=== PATIENT | female | born 1990 | race Caucasian/White ===

== ENCOUNTER 2019-07-21 14:03 | Inpatient (IN) | payer OTHER ==
--- NOTE | 2019-07-21 14:34 | ED ---
General Adult HPI - General Chief complaint: Recheck/Abnormal Lab/Rx Stated complaint: Dr Blas sent patient over, jaundice Time Seen by Provider: 07/21/19 14:19 Source: patient, RN notes reviewed Mode of arrival: ambulatory Limitations: no limitations - History of Present Illness Initial comments: This a 29-year-old female presents emergency Department chief complaint of jaundice, URI symptoms. Patient states that she noticed jaundice but states t [facility] urgent care noticing Center for further evaluation. Patient does admit that she is a daily drinker for several years at least 1 pint per day. Patient states that she has had withdrawal symptoms in the past after having negative drinking. She has no complaint abdominal pain denies nausea, vomiting diarrhea constipation no change in urine or stool color. Patient states that she's never been diagnosed with liver disease. Patient admits that she's had cough congestion sinus issues for the last 3-4 days. Patient also complains that she's had been having ongoing hemorrhoid issues which intermittent bleeds. - Related Data Allergies Allergy/AdvReac Type Severity Reaction Status Date / Time No Known Allergies Allergy Verified 07/21/19 14:14 Review of Systems ROS Statement: Those systems with pertinent positive or pertinent negative responses have been documented in the HPI. ROS Other: All systems not noted in ROS Statement are negative. Past Medical History Past Medical History: No Reported History History of Any Multi-Drug Resistant Organisms: None Reported Past Surgical History: Tonsillectomy Additional Past Surgical History / Comment(s): jaw Past Psychological History: No Psychological Hx Reported Smoking Status: Current some day smoker Past Alcohol Use History: Abuse, Daily, Heavy Past Drug Use History: Marijuana General Exam Limitations: no limitations General appearance: alert, in no apparent distress Head exam: Present: atraumatic, normocephalic, normal inspection Eye exam: Present: PERRL, EOMI, scleral icterus. Absent: normal appearance, conjunctival injection, periorbital swelling ENT exam: Present: mucous membranes moist, TM's normal bilaterally. Absent: normal exam, normal oropharynx (Yellow coloration in the sublingual area) Neck exam: Present: normal inspection, full ROM. Absent: tenderness, meningismus, lymphadenopathy Respiratory exam: Present: normal lung sounds bilaterally. Absent: respiratory distress, wheezes, rales, rhonchi, stridor Cardiovascular Exam: Present: normal rhythm, tachycardia, normal heart sounds. Absent: systolic murmur, diastolic murmur, rubs, gallop, clicks GI/Abdominal exam: Present: soft, normal bowel sounds. Absent: distended, tenderness, guarding, rebound, rigid Neurological exam: Present: alert, oriented X3, CN II-XII intact Skin exam: Present: warm, dry, intact, normal color. Absent: rash Course Vital Signs 07/21/19 07/21/19 14:10 16:13 Temperature 99.1 F 99.2 F Pulse Rate 128 H 113 H Respiratory 20 20 Rate Blood Pressure 125/79 135/61 O2 Sat by Pulse 100 97 Oximetry Medical Decision Making - Lab Data Result diagrams: 07/21/19 17:00 07/21/19 14:26 Lab Results 07/21/19 07/21/19 07/21/19 Range/Units 14:26 14:26 14:26 WBC 9.3 (3.8-10.6) k/uL RBC 1.75 L (3.80-5.40) m/uL Hgb 4.5 L* (11.4-16.0) gm/dL Hct 14.7 L* (34.0-46.0) % MCV 83.8 (80.0-100.0) fL MCH 25.5 (25.0-35.0) pg MCHC 30.4 L (31.0-37.0) g/dL RDW 17.3 H (11.5-15.5) % Plt Count 235 (150-450) k/uL Neutrophils % 68 % Lymphocytes % 16 % Monocytes % 11 % Eosinophils % 1 % Basophils % 1 % Neutrophils # 6.3 (1.3-7.7) k/uL Lymphocytes # 1.5 (1.0-4.8) k/uL Monocytes # 1.0 (0-1.0) k/uL Eosinophils # 0.1 (0-0.7) k/uL Basophils # 0.1 (0-0.2) k/uL Hypochromasia Marked Poikilocytosis Moderate Anisocytosis Slight PT (9.0-12.0) sec INR (<1.2) APTT (22.0-30.0) sec Sodium 140 (137-145) mmol/L Potassium 3.5 (3.5-5.1) mmol/L Chloride 107 (98-107) mmol/L Carbon Dioxide 21 L (22-30) mmol/L Anion Gap 12 mmol/L BUN 3 L (7-17) mg/dL Creatinine 0.76 (0.52-1.04) mg/dL Est GFR (CKD-EPI)AfAm >90 (>60 ml/min/1.73 sqM) Est GFR (CKD-EPI)NonAf >90 (>60 ml/min/1.73 sqM) Glucose 132 H (74-99) mg/dL Calcium 8.5 (8.4-10.2) mg/dL Total Bilirubin 5.4 H (0.2-1.3) mg/dL AST 101 H (14-36) U/L ALT 16 (4-34) U/L Alkaline Phosphatase 129 H (38-126) U/L Total Protein 7.0 (6.3-8.2) g/dL Albumin 3.5 (3.5-5.0) g/dL Amylase 42 (30-110) U/L Lipase 205 (23-300) U/L Urine Color Urine Appearance (Clear) Urine pH (5.0-8.0) Ur Specific [place] (1.001-1.035) Urine Protein (Negative) Urine Glucose (UA) (Negative) Urine Ketones (Negative) Urine Blood (Negative) Urine Nitrite (Negative) Urine Bilirubin (Negative) Urine Urobilinogen (<2.0) mg/dL Ur Leukocyte Esterase (Negative) Urine RBC (0-5) /hpf Urine WBC (0-5) /hpf Urine WBC Clumps (None) /hpf Ur Squamous Epith Cells (0-4) /hpf Urine Bacteria (None) /hpf Hyaline Casts (0-2) /lpf Urine Mucus (None) /hpf Urine HCG, Qual Not Detected (Not Detectd) Acetaminophen <10.0 ug/mL Hepatitis A IgM Ab 07/21/19 07/21/19 07/21/19 Range/Units 14:26 14:26 15:22 WBC (3.8-10.6) k/uL RBC (3.80-5.40) m/uL Hgb (11.4-16.0) gm/dL Hct (34.0-46.0) % MCV (80.0-100.0) fL MCH (25.0-35.0) pg MCHC (31.0-37.0) g/dL RDW (11.5-15.5) % Plt Count (150-450) k/uL Neutrophils % % Lymphocytes % % Monocytes % % Eosinophils % % Basophils % % Neutrophils # (1.3-7.7) k/uL Lymphocytes # (1.0-4.8) k/uL Monocytes # (0-1.0) k/uL Eosinophils # (0-0.7) k/uL Basophils # (0-0.2) k/uL Hypochromasia Poikilocytosis Anisocytosis PT 15.2 H (9.0-12.0) sec INR 1.5 H (<1.2) APTT 25.6 (22.0-30.0) sec Sodium (137-145) mmol/L Potassium (3.5-5.1) mmol/L Chloride (98-107) mmol/L Carbon Dioxide (22-30) mmol/L Anion Gap mmol/L BUN (7-17) mg/dL Creatinine (0.52-1.04) mg/dL Est GFR (CKD-EPI)AfAm (>60 ml/min/1.73 sqM) Est GFR (CKD-EPI)NonAf (>60 ml/min/1.73 sqM) Glucose (74-99) mg/dL Calcium (8.4-10.2) mg/dL Total Bilirubin (0.2-1.3) mg/dL AST (14-36) U/L ALT (4-34) U/L Alkaline Phosphatase (38-126) U/L Total Protein (6.3-8.2) g/dL Albumin (3.5-5.0) g/dL Amylase (30-110) U/L Lipase (23-300) U/L Urine Color Dark Brown Urine Appearance Cloudy H (Clear) Urine pH 6.5 (5.0-8.0) Ur Specific [place] 1.026 (1.001-1.035) Urine Protein 2+ H (Negative) Urine Glucose (UA) Trace H (Negative) Urine Ketones Trace H (Negative) Urine Blood Trace H (Negative) Urine Nitrite Negative (Negative) Urine Bilirubin 2+ H (Negative) Urine Urobilinogen 4.0 (<2.0) mg/dL Ur Leukocyte Esterase Negative (Negative) Urine RBC 1 (0-5) /hpf Urine WBC 83 H (0-5) /hpf Urine WBC Clumps Few H (None) /hpf Ur Squamous Epith Cells 5 H (0-4) /hpf Urine Bacteria Occasional H (None) /hpf Hyaline Casts 199 H (0-2) /lpf Urine Mucus Many H (None) /hpf Urine HCG, Qual (Not Detectd) Acetaminophen ug/mL Hepatitis A IgM Ab NEGATIVE 07/21/19 Range/Units 17:00 WBC 9.1 (3.8-10.6) k/uL RBC 1.63 L (3.80-5.40) m/uL Hgb 4.0 L* (11.4-16.0) gm/dL Hct 13.8 L* (34.0-46.0) % MCV 84.7 (80.0-100.0) fL MCH 24.3 L (25.0-35.0) pg MCHC 28.7 L (31.0-37.0) g/dL RDW 16.4 H (11.5-15.5) % Plt Count 207 (150-450) k/uL Neutrophils % 66 % Lymphocytes % 18 % Monocytes % 10 % Eosinophils % 1 % Basophils % 0 % Neutrophils # 6.0 (1.3-7.7) k/uL Lymphocytes # 1.6 (1.0-4.8) k/uL Monocytes # 0.9 (0-1.0) k/uL Eosinophils # 0.1 (0-0.7) k/uL Basophils # 0.0 (0-0.2) k/uL Hypochromasia Marked Poikilocytosis Marked Anisocytosis Slight PT (9.0-12.0) sec INR (<1.2) APTT (22.0-30.0) sec Sodium (137-145) mmol/L Potassium (3.5-5.1) mmol/L Chloride (98-107) mmol/L Carbon Dioxide (22-30) mmol/L Anion Gap mmol/L BUN (7-17) mg/dL Creatinine (0.52-1.04) mg/dL Est GFR (CKD-EPI)AfAm (>60 ml/min/1.73 sqM) Est GFR (CKD-EPI)NonAf (>60 ml/min/1.73 sqM) Glucose (74-99) mg/dL Calcium (8.4-10.2) mg/dL Total Bilirubin (0.2-1.3) mg/dL AST (14-36) U/L ALT (4-34) U/L Alkaline Phosphatase (38-126) U/L Total Protein (6.3-8.2) g/dL Albumin (3.5-5.0) g/dL Amylase (30-110) U/L Lipase (23-300) U/L Urine Color Urine Appearance (Clear) Urine pH (5.0-8.0) Ur Specific [place] (1.001-1.035) Urine Protein (Negative) Urine Glucose (UA) (Negative) Urine Ketones (Negative) Urine Blood (Negative) Urine Nitrite (Negative) Urine Bilirubin (Negative) Urine Urobilinogen (<2.0) mg/dL Ur Leukocyte Esterase (Negative) Urine RBC (0-5) /hpf Urine WBC (0-5) /hpf Urine WBC Clumps (None) /hpf Ur Squamous Epith Cells (0-4) /hpf Urine Bacteria (None) /hpf Hyaline Casts (0-2) /lpf Urine Mucus (None) /hpf Urine HCG, Qual (Not Detectd) Acetaminophen ug/mL Hepatitis A IgM Ab Critical Care Time Critical Care Time: Yes Total Critical Care Time: 35 Critical Care Time: Total 35 minutes of critical used to initially evaluated patient, reviewed past medical history, labs including CBC, CMP, hepatitis, PT/INR, urinalysis. Ultrasound was obtained shows a calculus cholecystitis though she has no tenderness at this time. Patient will be admitted for anemia was likely chronic illness along with rectal bleeding from hemorrhoids. Patient was transfused 2 units, patient was treated for urinary tract infection with Rocephin patient will have GI consult and further evaluation. Disposition Clinical Impression: Anemia, Alcoholic hepatitis, Jaundice, UTI (urinary tract infection), Rectal bleeding Disposition: ADMITTED IP TO THIS [facility] Condition: Critical Referrals: Sky Blas DO [Primary Care Provider] - 1-2 days
[2019-07-21 15:34] LABS: Appearance,Urine Cloudy (Clear); Bacteria,Urine Occasional /hpf; Bilirubin,Urine 2+ (Negative); Blood,Urine Trace (Negative); Color,Urine Dark Brown; Glucose,Urine (UA) Trace (Negative); Hyaline Casts,Urine 199 /lpf (0-2); Ketones,Urine Trace (Negative); Leukocyte Esterase,Urine Negative (Negative); Mucus,Urine Many /hpf; Nitrite,Urine Negative (Negative); PH, Urine 6.5 (5.0-8.0); Protein,Urine 2+ (Negative); RBC,Urine 1 /hpf (0-5); Specific Gravity,Urine 1.026 (1.001-1.035); Squamous Epithelial Cell,Urine 5 /hpf (0-4); WBC,Urine 83 /hpf (0-5)
[2019-07-21 15:38] LABS: INR 1.5 (<1.2); Partial Thromboplastin Time 25.6 sec (22.0-30.0); Prothrombin Time 15.2 sec (9.0-12.0)
[2019-07-21 15:41] LABS: ALT 16 U/L (4-34); AST 101 U/L (14-36); Acetaminophen <10.0 ug/mL; African American GFR (CKD) >90 (>60 ml/min/1.73 sqM); Albumin 3.5 g/dL (3.5-5.0); Alkaline Phosphatase 129 U/L (38-126); Amylase 42 U/L (30-110); Anion Gap 12 mmol/L; Blood Urea Nitrogen 3 mg/dL (7-17); Calcium 8.5 mg/dL (8.4-10.2); Carbon Dioxide 21 mmol/L (22-30); Chloride 107 mmol/L (98-107); Glucose 132 mg/dL (74-99); Non-African American GFR(CKD) >90 (>60 ml/min/1.73 sqM); Potassium 3.5 mmol/L (3.5-5.1); Sodium 140 mmol/L (137-145); Total Bilirubin 5.4 mg/dL (0.2-1.3)
[2019-07-21 15:43] LABS: Anisocytosis Slight; Basophils # (A) 0.1 k/uL (0-0.2); Basophils % (A) 1 %; Eosinophils # (A) 0.1 k/uL (0-0.7); Eosinophils % (A) 1 %; Hypochromasia Marked; Lymphocytes # (A) 1.5 k/uL (1.0-4.8); Lymphocytes % (A) 16 %; MCH 25.5 pg (25.0-35.0); MCHC 30.4 g/dL (31.0-37.0); MCV 83.8 fL (80.0-100.0); Mean Platelet Volume 8.9; Monocytes % (A) 11 %; Neutrophils # (A) 6.3 k/uL (1.3-7.7); Neutrophils % (A) 68 %; Platelet Count 235 k/uL (150-450); Poikilocytosis Moderate; RBC 1.75 m/uL (3.80-5.40); RDW 17.3 % (11.5-15.5); WBC 9.3 k/uL (3.8-10.6)
[2019-07-21 15:44] LABS: HGB 4.5 gm/dL (11.4-16.0)
[2019-07-21 15:47] LABS: HCT 14.7 % (34.0-46.0)
[2019-07-21] MEDS ORDERED: SODIUM CHLORIDE 0.9% 1,000 ML IV ONE (16:08)
[2019-07-21 16:24] LABS: Hepatitis A Antibody IgM NEGATIVE
--- NOTE | 2019-07-21 16:37 | US ---
EXAMINATION TYPE: US abdomen limited DATE OF EXAM: 07/21/2019 COMPARISON: NONE CLINICAL HISTORY: Jaundice, patient daily drinker, states she drinks at least a pint a day EXAM MEASUREMENTS: Liver Length: 20.7 cm Gallbladder Wall: 0.8 cm CBD: 0.4 cm Right Kidney: 10.7 x 3.3 x 5.0 cm Pancreas: Obscured by bowel gas Liver: enlarged, difficult to penetrate, heterogeneous Gallbladder: wall thickened Evidence for sonographic Carranza's sign: CBD: wnl Right Kidney: wnl IMPRESSION: No gallstones seen. No dilated ducts. All bladder wall thickening consistent with acalculous cholecys titis.
[2019-07-21 17:18] LABS: Anisocytosis Slight; Basophils % (A) 0 %; Eosinophils # (A) 0.1 k/uL (0-0.7); Eosinophils % (A) 1 %; Hypochromasia Marked; Lymphocytes # (A) 1.6 k/uL (1.0-4.8); Lymphocytes % (A) 18 %; MCH 24.3 pg (25.0-35.0); MCHC 28.7 g/dL (31.0-37.0); MCV 84.7 fL (80.0-100.0); Mean Platelet Volume 8.8; Monocytes # (A) 0.9 k/uL (0-1.0); Monocytes % (A) 10 %; Neutrophils % (A) 66 %; Platelet Count 207 k/uL (150-450); Poikilocytosis Marked; RBC 1.63 m/uL (3.80-5.40); RDW 16.4 % (11.5-15.5); WBC 9.1 k/uL (3.8-10.6)
[2019-07-21 17:29] LABS: HCT 13.8 % (34.0-46.0)
[2019-07-21] MEDS ORDERED: SODIUM CHLORIDE 0.9% 1,000 ML with MVI, ADULT NO.4 WITH VIT K 10 ML, THIAMINE 100 MG, F... IV ONE ×4 (17:42)
[2019-07-21] MEDS ORDERED: PANTOPRAZOLE 40 MG/10 ML VIAL IVP STA (17:42)
[2019-07-21] MEDS ORDERED: LORazepam 2 MG/ML INJ IV PRN ×3 (17:44)
--- NOTE | 2019-07-21 18:33 | P.CNPUL ---
History of Present Illness Consult date: 07/21/19 Chief complaint: Severe anemia, generalized weakness, GI bleed History of present illness: 29-year-old female patient, alcoholic drinks 1 pint of vodka on a daily basis, came into the emergency department as the patient was feeling weak and dizzy. She was jaundiced and his same time she was found to be anemic with a hemoglobin of 4.0. She claims that she was having lower GI bleed and she thought it was from hemorrhoids. She was having on and off large amounts of bright red blood per rectum. We're not sure if she has any history of internal hemorrhoids. She denies having any melanotic stool. She denied having any metastases emesis. No coffee-ground emesis. Currently she is receiving her first unit of packed RBC. She is hemodynamically stable. No signs of any delirium tremens. No history of any peptic ulcer disease. Her INR is at 1.5 with a PT of 15.2 and a PTT of 25. Bilirubin is at 5.4 with AST of 11 and ALP of [place] alkaline phosphatase at 129. Albumin is at 3.5. No confusion. No abdominal distention. No ascites. No nausea. No vomiting. No chest pain. No shortness of breath at this point in time. She has ibuprofen listed in her medication list and apparently she was taking ibuprofen for for episodic fever . The urinalysis was abnormal and the patient was started on Rocephin for possible suspected UTI. Review of Systems Constitutional: Reports fatigue, Reports weakness Eyes: denies as per HPI, denies blurred vision, denies bulging eye, denies decreased vision, denies diplopia, denies discharge, denies dry eye, denies irritation, denies itching, denies pain, denies photophobia, denies loss of peripheral vision, denies loss of vision, denies tunnel vision/blind spots Ears: deny: decreased hearing, ear discharge, earache, tinnitus Ears, nose, mouth and throat: Denies headache, Denies sore throat Breasts: absent: as per HPI, change in shape, gynecomastia, masses, nipple discharge, pain, skin changes, swelling Breasts: Reports as per HPI Cardiovascular: Reports dyspnea on exertion Respiratory: Reports as per HPI, Reports dyspnea Gastrointestinal: Reports bloating Genitourinary: Reports as per HPI Menstruation: Reports as per HPI Musculoskeletal: Reports as per HPI Musculoskeletal: absent: ankle pain, ankle stiffness, ankle swelling, as per HPI, elbow pain, elbow stiffness, elbow swelling, foot pain, foot stiffness, foot swelling, hand pain, hand stiffness, hand swelling, hip pain, hip stiffness, hip swelling, knee pain, knee stiffness, knee swelling, shoulder pain, shoulder stiffness, shoulder swelling, wrist pain, wrist stiffness, wrist swelling Integumentary: Reports as per HPI ( jaundice) Neurological: Reports as per HPI Psychiatric: Reports as per HPI Endocrine: Reports as per HPI Hematologic/Lymphatic: Reports as per HPI Allergic/Immunologic: Reports as per HPI Past Medical History Past Medical History: No Reported History Additional Past Medical History / Comment(s): Alcoholism History of Any Multi-Drug Resistant Organisms: None Reported Past Surgical History: Tonsillectomy Additional Past Surgical History / Comment(s): jaw Past Psychological History: No Psychological Hx Reported Smoking Status: Current some day smoker Past Alcohol Use History: Abuse, Daily, Heavy Past Drug Use History: Marijuana Medications and Allergies Home Medications Medication Instructions Recorded Confirmed Type Ibuprofen [Motrin Ib] 800 mg PO Q6H PRN 07/21/19 07/21/19 History Phenylephrine/Dm/Acetaminop/GG 30 ml PO Q12H PRN 07/21/19 07/21/19 History [Mucinex Fast-Max Cold-Flu Liq] Ranitidine HCl [Zantac] 150 mg PO HS 07/21/19 07/21/19 History Allergies Allergy/AdvReac Type Severity Reaction Status Date / Time No Known Allergies Allergy Verified 07/21/19 18:19 Physical Exam Vitals: Vital Signs Temp Pulse Resp BP Pulse Ox 07/21/19 16:13 99.2 F 113 H 20 135/61 97 07/21/19 14:10 99.1 F 128 H 20 125/79 100 Intake and Output 07/21/19 07/21/19 07/21/19 06:59 14:59 22:59 Other: Weight 88.451 kg Gen. appearance, comfortable not in acute distress, she looks pale Head exam was generally normal. There was scleral icterus or corneal arcus. Mucous membranes were moist. Neck was supple and without jugular venous distension, thyromegaly, or carotid bruits. Carotids were easily palpable bilaterally. There was no adenopathy. Cardiac exam revealed the PMI to be normally situated and sized. The rhythm was regular and no extrasystoles were noted during several minutes of auscultation. The first and second heart sounds were normal and physiologic splitting of the second heart sound was noted. There were no murmurs, rubs, clicks, or gallops. Lungs were clear to auscultation and percussion, and with normal diaphragmatic excursion. No wheezes or rales were noted. Abdominal exam revealed normal bowel sounds. The abdomen was soft, non-tender, and without masses, organomegaly, or appreciable enlargement of the abdominal aorta. Examination of the extremities revealed easily palpable radial, femoral and pedal pulses. There was no cyanosis, clubbing or edema. Examination of the skin revealed no evidence of significant rashes, suspicious appearing nevi or other concerning lesions. Neurologically the patient is awake and alert and there is no focal neurological deficits. Results - Laboratory Findings CBC and BMP: 07/21/19 17:00 07/21/19 14:26 ABG WBC 9.1 k/uL (3.8-10.6) 07/21/19 17:00 RBC 1.63 m/uL (3.80-5.40) L 07/21/19 17:00 Hgb 4.0 gm/dL (11.4-16.0) L* 07/21/19 17:00 Hct 13.8 % (34.0-46.0) L* 07/21/19 17:00 MCV 84.7 fL (80.0-100.0) 07/21/19 17:00 MCH 24.3 pg (25.0-35.0) L 07/21/19 17:00 MCHC 28.7 g/dL (31.0-37.0) L 07/21/19 17:00 RDW 16.4 % (11.5-15.5) H 07/21/19 17:00 Plt Count 207 k/uL (150-450) 07/21/19 17:00 Neutrophils % 66 % 07/21/19 17:00 Lymphocytes % 18 % 07/21/19 17:00 Monocytes % 10 % 07/21/19 17:00 Eosinophils % 1 % 07/21/19 17:00 Basophils % 0 % 07/21/19 17:00 Neutrophils # 6.0 k/uL (1.3-7.7) 07/21/19 17:00 Lymphocytes # 1.6 k/uL (1.0-4.8) 07/21/19 17:00 Monocytes # 0.9 k/uL (0-1.0) 07/21/19 17:00 Eosinophils # 0.1 k/uL (0-0.7) 07/21/19 17:00 Basophils # 0.0 k/uL (0-0.2) 07/21/19 17:00 Hypochromasia Marked 07/21/19 17:00 Poikilocytosis Marked 07/21/19 17:00 Anisocytosis Slight 07/21/19 17:00 PT 15.2 sec (9.0-12.0) H 07/21/19 14:26 INR 1.5 (<1.2) H 07/21/19 14:26 APTT 25.6 sec (22.0-30.0) 07/21/19 14:26 Sodium 140 mmol/L (137-145) 07/21/19 14:26 Potassium 3.5 mmol/L (3.5-5.1) 07/21/19 14:26 Chloride 107 mmol/L (98-107) 07/21/19 14:26 Carbon Dioxide 21 mmol/L (22-30) L 07/21/19 14:26 Anion Gap 12 mmol/L 07/21/19 14:26 BUN 3 mg/dL (7-17) L 07/21/19 14:26 Creatinine 0.76 mg/dL (0.52-1.04) 07/21/19 14:26 Est GFR (CKD-EPI)AfAm >90 (>60 ml/min/1.73 sqM) 07/21/19 14:26 Est GFR (CKD-EPI)NonAf >90 (>60 ml/min/1.73 sqM) 07/21/19 14:26 Glucose 132 mg/dL (74-99) H 07/21/19 14:26 Calcium 8.5 mg/dL (8.4-10.2) 07/21/19 14:26 Total Bilirubin 5.4 mg/dL (0.2-1.3) H 07/21/19 14:26 AST 101 U/L (14-36) H 07/21/19 14:26 ALT 16 U/L (4-34) 07/21/19 14:26 Alkaline Phosphatase 129 U/L (38-126) H 07/21/19 14:26 Total Protein 7.0 g/dL (6.3-8.2) 07/21/19 14: Albumin 3.5 g/dL (3.5-5.0) 07/21/19 14:26 Amylase 42 U/L (30-110) 07/21/19 14: Lipase 205 U/L (23-300) 07/21/19 14:26 Urine Color Dark Brown 07/21/19 14: Urine Appearance Cloudy (Clear) H 07/21/19 14: Urine pH 6.5 (5.0-8.0) 07/21/19 14: Ur Specific [place] 1.026 (1.001-1.035) 07/21/19 14:26 Urine Protein 2+ (Negative) H 07/21/19 14:26 Urine Glucose (UA) Trace (Negative) H 07/21/19 14: Urine Ketones Trace (Negative) H 07/21/19 14:26 Urine Blood Trace (Negative) H 07/21/19 14:26 Urine Nitrite Negative (Negative) 07/21/19 14: Urine Bilirubin 2+ (Negative) H 07/21/19 14: Urine Urobilinogen 4.0 mg/dL (<2.0) 07/21/19 14:26 Ur Leukocyte Esterase Negative (Negative) 07/21/19 14:26 Urine RBC 1 /hpf (0-5) 07/21/19 14:26 Urine WBC 83 /hpf (0-5) H 07/21/19 14:26 Urine WBC Clumps Few /hpf (None) H 07/21/19 14:26 Ur Squamous Epith Cells 5 /hpf (0-4) H 07/21/19 14: Urine Bacteria Occasional /hpf (None) H 07/21/19 14: Hyaline Casts 199 /lpf (0-2) H 07/21/19 14:26 Urine Mucus Many /hpf (None) H 07/21/19 14:26 Urine HCG, Qual Not Detected (Not Detectd) 07/21/19 14: Acetaminophen <10.0 ug/mL 07/21/19 14:26 Hepatitis A IgM Ab NEGATIVE 07/21/19 15:22 PT/INR, D-dimer PT 15.2 sec (9.0-12.0) H 07/21/19 14:26 INR 1.5 (<1.2) H 07/21/19 14:26 Abnormal lab findings: Abnormal Labs 07/21/19 07/21/19 07/21/19 14:26 14:26 14:26 RBC 1.75 L Hgb 4.5 L* Hct 14.7 L* MCH MCHC 30.4 L RDW 17.3 H PT 15.2 H INR 1.5 H Carbon Dioxide 21 L BUN 3 L Glucose 132 H Total Bilirubin 5.4 H AST 101 H Alkaline Phosphatase 129 H Urine Appearance Urine Protein Urine Glucose (UA) Urine Ketones Urine Blood Urine Bilirubin Urine WBC Urine WBC Clumps Ur Squamous Epith Cells Urine Bacteria Hyaline Casts Urine Mucus Crossmatch 07/21/19 07/21/19 07/21/19 14:26 15:50 17:00 RBC 1.63 L Hgb 4.0 L* Hct 13.8 L* MCH 24.3 L MCHC 28.7 L RDW 16.4 H PT INR Carbon Dioxide BUN Glucose Total Bilirubin AST Alkaline Phosphatase Urine Appearance Cloudy H Urine Protein 2+ H Urine Glucose (UA) Trace H Urine Ketones Trace H Urine Blood Trace H Urine Bilirubin 2+ H Urine WBC 83 H Urine WBC Clumps Few H Ur Squamous Epith Cells 5 H Urine Bacteria Occasional H Hyaline Casts 199 H Urine Mucus Many H Crossmatch See Detail Assessment and Plan Plan: 1 anemia, subacute, probably related to gastrointestinal blood loss. The patient was having bright red blood per rectum. Rule out diverticular bleed. Rule out hemorrhoidal bleeds. Rule out upper GI bleeding although this is a less likely possibility as the patient was not having any formal melanotic stools or dark tarry stools. Hemoglobin currently is down to 4.0 and the patient is symptomatic receiving a total of 2 units of packed RBCs. Hemodynamically stable. 2 alcoholism 3 mild coagulopathy with an INR of 1.5 4 hyperbilirubinemia, consider related to the chronic liver disease secondary to alcoholism 5 generalized weakness and exertional dyspnea secondary to anemia 6 suspected UTI with episodes of fever and abnormal UA Plan 1 transfused with a total of 2 units of packed RBC and repeat hemoglobin 2 watch for any signs of delirium tremens 3 Give the patient combination of thiamine and folate 4 IV Protonix 5 GI consultation for EGD and colonoscopy 6 NPO 7 ultrasound the liver 8 hepatitis profile 9 UDS 10 Iv Rocephine and obtain urine CX 11 Will admit to the ICU and will FU Time with Patient: Greater than 30
[2019-07-21] MEDS: THIAMINE 100 MG TAB PO SCH (19:53)
[2019-07-21] MEDS: BENZOCAINE/MENTHOL LOZENG 1 EACH LOZENGE MUCOUS MEM PRN ×2 (20:00→23:42)
--- NOTE | 2019-07-21 21:43 | P.HPIM ---
History of Present Illness H&P Date: 07/21/19 Chief Complaint: Severe anemia History of presenting complaint: This is a pleasant 29-year-old patient of Dr. Blas. Patient is a long- standing history of drinking alcohol. Patient has been drinking alcohol or above for quite some time. More so in the last 1 year. She will drink anywhere from half to point toward, who whiskey everyday. She'll sometimes will take Motrin also. Patient also has hemorrhoids and does intermittently bleed. More so recently. Patient's had not any menstrual cycle for last 2 months. Patient went to the urgent care for upper respiratory tract infection symptoms. Also noticed to be jaundiced. dter. Hemoglobin was found to be 4.5. Patient's hemorrhoids have been bleeding more so recently. 2 units of blood was ordered and patient admitted to the ICU. Denies any abdominal pain. Review of systems: GEN.: Weak tired rundown EYES: Jaundiced HEENT: None NECK: None RESPIRATORY: Congested throat CARDIOVASCULAR: None GASTROINTESTINAL: As above GENITOURINARY: No PTH for last 2 months MUSCULOSKELETAL: None LYMPHATICS: None HEMATOLOGICAL: None PSYCHIATRY: None NEUROLOGICAL: None Past medical history: Alcoholism. Lost a that were 25 days old. Social history: Does not smoke. Marijuana occasionally. Lives with sister. 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 Family history: Reviewed, noncontributory to presentation Physical examination: VITAL SIGNS: 99.1, 128, 20, 125/79, 100% on room air GENERAL: Average built, laying in bed awake. EYES: [Pupils equal. Conjunctiva icterus l. HEENT: External appearance of nose and ears normal, oral cavity grossly normal. NECK: JVD not raised; masses not palpable. HEART: First and second heart sounds are normal; no edema. LUNGS: Respiratory rate normal; clear to auscultation. ABDOMEN: Soft, nontender, liver spleen not palpable, no masses palpable. Rectal exam not done PSYCH: Alert and oriented x3; mood and affect normal. NEUROLOGICAL: Cranial nerves grossly intact; no facial asymmetry, power and sensation grossly intact. LYMPHATICS: No lymph nodes palpable in the axilla and neck INVESTIGATIONS, reviewed in the clinical context: White count 9.3 hemoglobin 4.5 platelets 235 pro time 15.2 potassium 3.5 bun 3 creatinine 0.76 Total bilirubin 5.4 AST 101 Assessment: -Acute severe blood loss anemia. Patient has been bleeding intermittently from her hemorrhoids that appears to be the major determinant. Given that history of alcoholism and also taking Motrin intermittently upper GI bleed could also be contributing. -Chronic alcoholism -Hemorrhoidal bleeding, acute on chronic -Alcoholic liver disease Plan: Patient admitted to the ICU. 2 units of blood were ordered. GI was consulted with review to upper endoscopy. Patient admitted nothing by mouth from midnight. Care was discussed with the patient question were answered. We'll put the patient on a small dose of Valium for DT prophylaxis. We'll also do's CIWA scale Past Medical History Past Medical History: No Reported History Additional Past Medical History / Comment(s): Alcoholism History of Any Multi-Drug Resistant Organisms: None Reported Past Surgical History: Tonsillectomy Additional Past Surgical History / Comment(s): jaw Past Psychological History: No Psychological Hx Reported Smoking Status: Never smoker Past Alcohol Use History: Abuse, Daily, Heavy Past Drug Use History: Marijuana Medications and Allergies Home Medications Medication Instructions Recorded Confirmed Type Ibuprofen [Motrin Ib] 800 mg PO Q6H PRN 07/21/19 07/21/19 History Phenylephrine/Dm/Acetaminop/GG 30 ml PO Q12H PRN 07/21/19 07/21/19 History [Mucinex Fast-Max Cold-Flu Liq] Ranitidine HCl [Zantac] 150 mg PO HS 07/21/19 07/21/19 History Allergies Allergy/AdvReac Type Severity Reaction Status Date / Time No Known Allergies Allergy Verified 07/21/19 18:19 Physical Exam Vitals: Vital Signs Temp Pulse Resp BP Pulse Ox 07/21/19 19:10 100.0 F H 109 H 32 H 122/68 99 07/21/19 19:05 100 F H 110 H 16 120/85 07/21/19 19:04 100.2 F H 114 H 18 124/68 99 07/21/19 18:35 100.2 F H 114 H 18 124/68 07/21/19 18:25 99.2 F 111 H 18 131/61 99 07/21/19 16:13 99.2 F 113 H 20 135/61 97 07/21/19 14:10 99.1 F 128 H 20 125/79 100 Intake and Output 07/21/19 07/21/19 07/21/19 06:59 14:59 22:59 Intake Total 100 Balance 100 Intake: IV 100 Sodium Chloride 0.9% 1, 100 000 ml @ 100 mls/hr IV . Q10H7M ONE with Mvi, Adult No.4 with Vit K 10 ml with Thiamine 100 mg with Folic Acid 1 mg Rx#: [id number] Blood Product 0 Rc As-1 Unit 0 [id number] Other: Weight 88.451 kg 88.451 kg Results CBC & Chem 7: 07/21/19 17:00 07/21/19 14:26 Labs: Abnormal Lab Results - Last 24 Hours (Table) 07/21/19 07/21/19 07/21/19 Range/Units 14:26 14:26 14:26 RBC 1.75 L (3.80-5.40) m/uL Hgb 4.5 L* (11.4-16.0) gm/dL Hct 14.7 L* (34.0-46.0) % MCH (25.0-35.0) pg MCHC 30.4 L (31.0-37.0) g/dL RDW 17.3 H (11.5-15.5) % PT 15.2 H (9.0-12.0) sec INR 1.5 H (<1.2) Carbon Dioxide 21 L (22-30) mmol/L BUN 3 L (7-17) mg/dL Glucose 132 H (74-99) mg/dL Total Bilirubin 5.4 H (0.2-1.3) mg/dL AST 101 H (14-36) U/L Alkaline Phosphatase 129 H (38-126) U/L Urine Appearance (Clear) Urine Protein (Negative) Urine Glucose (UA) (Negative) Urine Ketones (Negative) Urine Blood (Negative) Urine Bilirubin (Negative) Urine WBC (0-5) /hpf Urine WBC Clumps (None) /hpf Ur Squamous Epith Cells (0-4) /hpf Urine Bacteria (None) /hpf Hyaline Casts (0-2) /lpf Urine Mucus (None) /hpf Crossmatch 07/21/19 07/21/19 07/21/19 Range/Units 14:26 15:50 17:00 RBC 1.63 L (3.80-5.40) m/uL Hgb 4.0 L* (11.4-16.0) gm/dL Hct 13.8 L* (34.0-46.0) % MCH 24.3 L (25.0-35.0) pg MCHC 28.7 L (31.0-37.0) g/dL RDW 16.4 H (11.5-15.5) % PT (9.0-12.0) sec INR (<1.2) Carbon Dioxide (22-30) mmol/L BUN (7-17) mg/dL Glucose (74-99) mg/dL Total Bilirubin (0.2-1.3) mg/dL AST (14-36) U/L Alkaline Phosphatase (38-126) U/L Urine Appearance Cloudy H (Clear) Urine Protein 2+ H (Negative) Urine Glucose (UA) Trace H (Negative) Urine Ketones Trace H (Negative) Urine Blood Trace H (Negative) Urine Bilirubin 2+ H (Negative) Urine WBC 83 H (0-5) /hpf Urine WBC Clumps Few H (None) /hpf Ur Squamous Epith Cells 5 H (0-4) /hpf Urine Bacteria Occasional H (None) /hpf Hyaline Casts 199 H (0-2) /lpf Urine Mucus Many H (None) /hpf Crossmatch See Detail Thrombosis Risk Factor Assmnt - Choose All That Apply Any of the Below Risk Factors Present?: No Other Risk Factors: No Thrombosis Risk Factor Assessment Level: Very Low Risk
[2019-07-22 01:22] LABS: Hepatitis B Core IgM Non-Reactive (Non-Reactive); Hepatitis B Surface Antigen Non-Reactive (Non-Reactive); Hepatitis C IgG Antibody Non-Reactive (Non-Reactive)
[2019-07-22 02:23] LABS: Anisocytosis Slight; Basophils # (A) 0.1 k/uL (0-0.2); Basophils % (A) 1 %; Eosinophils # (A) 0.1 k/uL (0-0.7); Eosinophils % (A) 1 %; HGB 5.5 gm/dL (11.4-16.0); Hypochromasia Marked; Lymphocytes # (A) 2.1 k/uL (1.0-4.8); Lymphocytes % (A) 22 %; MCH 27.1 pg (25.0-35.0); MCHC 31.2 g/dL (31.0-37.0); MCV 87.1 fL (80.0-100.0); Mean Platelet Volume 8.9; Monocytes % (A) 11 %; Neutrophils # (A) 5.7 k/uL (1.3-7.7); Neutrophils % (A) 61 %; Platelet Count 195 k/uL (150-450); Poikilocytosis Marked; RBC 2.02 m/uL (3.80-5.40); RDW 16.1 % (11.5-15.5); WBC 9.3 k/uL (3.8-10.6)
[2019-07-22 02:24] LABS: HCT 17.6 % (34.0-46.0)
[2019-07-22] MEDS: THIAMINE 100 MG TAB PO SCH ×2 (04:40→18:22)
[2019-07-22 08:23] LABS: Basophils # (A) 0.1 k/uL (0-0.2); Basophils % (A) 1 %; Eosinophils # (A) 0.1 k/uL (0-0.7); Eosinophils % (A) 1 %; HCT 21.2 % (34.0-46.0); Hypochromasia Marked; Lymphocytes # (A) 2.1 k/uL (1.0-4.8); Lymphocytes % (A) 21 %; MCHC 31.6 g/dL (31.0-37.0); MCV 88.8 fL (80.0-100.0); Mean Platelet Volume 8.8; Monocytes # (A) 0.9 k/uL (0-1.0); Monocytes % (A) 9 %; Neutrophils # (A) 6.4 k/uL (1.3-7.7); Neutrophils % (A) 65 %; Platelet Count 207 k/uL (150-450); Poikilocytosis Marked; RBC 2.39 m/uL (3.80-5.40); RDW 15.5 % (11.5-15.5); WBC 9.9 k/uL (3.8-10.6)
[2019-07-22 08:27] LABS: HGB 6.7 gm/dL (11.4-16.0)
[2019-07-22 08:34] LABS: African American GFR (CKD) >90 (>60 ml/min/1.73 sqM); Anion Gap 8 mmol/L; Blood Urea Nitrogen 5 mg/dL (7-17); Calcium 7.9 mg/dL (8.4-10.2); Carbon Dioxide 21 mmol/L (22-30); Chloride 111 mmol/L (98-107); Glucose 90 mg/dL (74-99); Non-African American GFR(CKD) >90 (>60 ml/min/1.73 sqM); Sodium 140 mmol/L (137-145)
--- NOTE | 2019-07-22 08:44 | P.PN ---
Subjective Progress Note Date: 07/22/19 On today's evaluation of 07/22/2019, the patient is awake and alert and she is looking well and she is was resuscitated. She received a total of 3 units of packed RBC. Hemoglobin came up to 6.7. She did have a few bouts of intermittent blood in her stool overnight. She is going to have a GI evaluation today. No nausea. No vomiting. No abdominal pain. She is taking some ice chips and she remains nothing by mouth. She is awake and alert. No complaints for now. Awaiting a GI consultation. The patient remains on IV Rocephin. The patient is receiving also IV fluids in the form of normal saline at the rate of 100 mL an hour. Family is at the bedside. The patient had an ultrasound of the gallbladder that showed no gallstones. There is evidence of a calculus cholecystitis and sonographic Carranza's sign. Bilirubin was elevated. Will need a surgical consultation regarding this abnormality along with her ongoing GI bleed. Objective - Vital Signs Vital signs: Vital Signs Temp 98.6 F 07/22/19 08:00 Pulse 93 07/22/19 08:00 Resp 29 H 07/22/19 08:00 BP 112/64 07/22/19 08:00 Pulse Ox 97 07/22/19 08:00 Intake & Output 07/21/19 07/22/19 07/22/19 18:59 06:59 18:59 Intake Total 0 2760 300 Output Total 450 200 Balance 0 2310 100 Weight 88.451 kg 88.451 kg Intake: IV 900 300 Sodium Chloride 0.9% 1, 900 200 000 ml @ 100 mls/hr IV . Q10H7M ONE with Mvi, Adult No.4 with Vit K 10 ml with Thiamine 100 mg with Folic Acid 1 mg Rx#: [id number] cefTRIAXone 1 gm In 100 Sodium Chloride 0.9% 50 ml @ 100 mls/hr IVPB ONCE STA Rx#:[id number] Blood Product 0 1860 Rc As-1 Unit 0 310 [id number] Rc As-1 Unit 310 [id number] Rc Cpda-1 Unit 310 [id number] Output: Urine 450 200 Other: Voiding Method Toilet - Exam Gen. appearance, comfortable not in acute distress, she looks pale Head exam was generally normal. There was scleral icterus or corneal arcus. Mucous membranes were moist. Neck was supple and without jugular venous distension, thyromegaly, or carotid bruits. Carotids were easily palpable bilaterally. There was no adenopathy. Cardiac exam revealed the PMI to be normally situated and sized. The rhythm was regular and no extrasystoles were noted during several minutes of auscultation. The first and second heart sounds were normal and physiologic splitting of the s econd heart sound was noted. There were no murmurs, rubs, clicks, or gallops. Lungs were clear to auscultation and percussion, and with normal diaphragmatic excursion. No wheezes or rales were noted. Abdominal exam revealed normal bowel sounds. The abdomen was soft, non-tender, and without masses, organomegaly, or appreciable enlargement of the abdominal aorta. Examination of the extremities revealed easily palpable radial, femoral and pedal pulses. There was no cyanosis, clubbing or edema. Examination of the skin revealed no evidence of significant rashes, suspicious appearing nevi or other concerning lesions. Neurologically the patient is awake and alert and there is no focal neurological deficits. - Labs CBC & Chem 7: 07/22/19 07:39 07/22/19 07:39 Labs: Abnormal Lab Results - Last 24 Hours (Table) 07/21/19 07/21/19 07/21/19 Range/Units 14:26 14:26 14:26 RBC 1.75 L (3.80-5.40) m/uL Hgb 4.5 L* (11.4-16.0) gm/dL Hct 14.7 L* (34.0-46.0) % MCH (25.0-35.0) pg MCHC 30.4 L (31.0-37.0) g/dL RDW 17.3 H (11.5-15.5) % PT 15.2 H (9.0-12.0) sec INR 1.5 H (<1.2) Chloride (98-107) mmol/L Carbon Dioxide 21 L (22-30) mmol/L BUN 3 L (7-17) mg/dL Glucose 132 H (74-99) mg/dL Calcium (8.4-10.2) mg/dL Total Bilirubin 5.4 H (0.2-1.3) mg/dL AST 101 H (14-36) U/L Alkaline Phosphatase 129 H (38-126) U/L Urine Appearance (Clear) Urine Protein (Negative) Urine Glucose (UA) (Negative) Urine Ketones (Negative) Urine Blood (Negative) Urine Bilirubin (Negative) Urine WBC (0-5) /hpf Urine WBC Clumps (None) /hpf Ur Squamous Epith Cells (0-4) /hpf Urine Bacteria (None) /hpf Hyaline Casts (0-2) /lpf Urine Mucus (None) /hpf Crossmatch 07/21/19 07/21/19 07/21/19 Range/Units 14:26 15:50 17:00 RBC 1.63 L (3.80-5.40) m/uL Hgb 4.0 L* (11.4-16.0) gm/dL Hct 13.8 L* (34.0-46.0) % MCH 24.3 L (25.0-35.0) pg MCHC 28.7 L (31.0-37.0) g/dL RDW 16.4 H (11.5-15.5) % PT (9.0-12.0) sec INR (<1.2) Chloride (98-107) mmol/L Carbon Dioxide (22-30) mmol/L BUN (7-17) mg/dL Glucose (74-99) mg/dL Calcium (8.4-10.2) mg/dL Total Bilirubin (0.2-1.3) mg/dL AST (14-36) U/L Alkaline Phosphatase (38-126) U/L Urine Appearance Cloudy H (Clear) Urine Protein 2+ H (Negative) Urine Glucose (UA) Trace H (Negative) Urine Ketones Trace H (Negative) Urine Blood Trace H (Negative) Urine Bilirubin 2+ H (Negative) Urine WBC 83 H (0-5) /hpf Urine WBC Clumps Few H (None) /hpf Ur Squamous Epith Cells 5 H (0-4) /hpf Urine Bacteria Occasional H (None) /hpf Hyaline Casts 199 H (0-2) /lpf Urine Mucus Many H (None) /hpf Crossmatch See Detail 07/22/19 07/22/19 07/22/19 Range/Units 01:52 07:39 07:39 RBC 2.02 L 2.39 L (3.80-5.40) m/uL Hgb 5.5 L* D 6.7 L* (11.4-16.0) gm/dL Hct 17.6 L* 21.2 L (34.0-46.0) % MCH (25.0-35.0) pg MCHC (31.0-37.0) g/dL RDW 16.1 H (11.5-15.5) % PT (9.0-12.0) sec INR (<1.2) Chloride 111 H (98-107) mmol/L Carbon Dioxide 21 L (22-30) mmol/L BUN 5 L (7-17) mg/dL Glucose (74-99) mg/dL Calcium 7.9 L (8.4-10.2) mg/dL Total Bilirubin (0.2-1.3) mg/dL AST (14-36) U/L Alkaline Phosphatase (38-126) U/L Urine Appearance (Clear) Urine Protein (Negative) Urine Glucose (UA) (Negative) Urine Ketones (Negative) Urine Blood (Negative) Urine Bilirubin (Negative) Urine WBC (0-5) /hpf Urine WBC Clumps (None) /hpf Ur Squamous Epith Cells (0-4) /hpf Urine Bacteria (None) /hpf Hyaline Casts (0-2) /lpf Urine Mucus (None) /hpf Crossmatch Microbiology - Last 24 Hours (Table) 07/21/19 14:26 Urine Culture - Preliminary Urine,Clean Catch Assessment and Plan Plan: 1 anemia, subacute, probably related to gastrointestinal blood loss. The patient was having bright red blood per rectum. Rule out diverticular bleed. Rule out hemorrhoidal bleeds. Rule out upper GI bleeding although this is a less likely possibility as the patient was not having any formal melanotic stools or dark tarry stools. Hemoglobin currently is down to 4.0 and the patient is symptomatic receiving a total of 3 units of packed RBC and the follow -up hemoglobin is up to 6.7 after a total of 3 units of packed RBC. She remains somewhat active stable. She still having some bloody stool and she'll bouts occurred overnight. 3 mild coagulopathy with an INR of 1.5 4 hyperbilirubinemia, consider related to the chronic liver disease secondary to alcoholism 5 generalized weakness and exertional dyspnea secondary to anemia 6 suspected UTI with episodes of fever and abnormal UA, currently on IV Rocephin 7 The patient has evidence of a calculus cholecystitis based on ultrasound findings and the patient has evidence of sonographic Carranza's sign being positive. No gallstones. Plan 1 3 units of packed RBC and repeat hemoglobin , and the follow-up hemoglobin is at 6.7 for now. 2 watch for any signs of delirium tremens, none for now 3 Give the patient combination of thiamine and folate 4 IV Protonix, keep nothing by mouth 5 GI consultation for EGD and colonoscopy 6 NPO 7 ultrasound the liver and the gallbladder was noted and the patient has a calculus cholecystitis and signs of sonographic Carranza sign and the patient will need a surgical consultation I'm going to consult general surgery. 8 hepatitis profile completed in its within normal 9 UDS 10 Iv Rocephine and obtain urine CX 11 keep the patient in the ICU and will FU
[2019-07-22] MEDS ORDERED: PANTOPRAZOLE 40 MG/10 ML VIAL IVP SCH (09:00)
[2019-07-22 13:54] LABS: Anisocytosis Slight; Basophils # (A) 0.3 k/uL (0-0.2); Basophils % (A) 4 %; Eosinophils # (A) 0.1 k/uL (0-0.7); Eosinophils % (A) 1 %; HCT 20.9 % (34.0-46.0); Hypochromasia Marked; Lymphocytes # (A) 1.3 k/uL (1.0-4.8); Lymphocytes % (A) 16 %; MCH 27.7 pg (25.0-35.0); MCHC 31.7 g/dL (31.0-37.0); MCV 87.4 fL (80.0-100.0); Mean Platelet Volume 8.7; Monocytes # (A) 0.8 k/uL (0-1.0); Monocytes % (A) 10 %; Neutrophils # (A) 5.5 k/uL (1.3-7.7); Neutrophils % (A) 67 %; Platelet Count 182 k/uL (150-450); Poikilocytosis Marked; RBC 2.39 m/uL (3.80-5.40); RDW 16.5 % (11.5-15.5); WBC 8.2 k/uL (3.8-10.6)
[2019-07-22 13:56] LABS: HGB 6.6 gm/dL (11.4-16.0)
[2019-07-22 14:10] LABS: Large Platelets Present; Polychromasia Present
[2019-07-22] MEDS ORDERED: PEG 3350-NA SULF,BICARB,CL/KCL 4,000 ML BOTTLE PO ONE (17:00)
--- NOTE | 2019-07-22 19:51 | P.PN ---
Progress Note - Text Progress Note Date: 07/22/19 Chief Complaint: Severe anemia Interval history: This is a pleasant 29-year-old patient of Dr. Blas. Patient is a long- standing history of drinking alcohol. Patient has been drinking alcohol or above for quite some time. More so in the last 1 year. She will drink anywhere from half to point toward, who whiskey everyday. She'll sometimes will take Motrin also. Patient also has hemorrhoids and does intermittently bleed. More so recently. Patient's had not any menstrual cycle for last 2 months. Patient went to the urgent care for upper respiratory tract infection symptoms. Also noticed to be jaundiced. dter. Hemoglobin was found to be 4.5. Patient's hemorrhoids have been bleeding more so recently. 2 units of blood was ordered and patient admitted to the ICU. Denies any abdominal pain. Today-remains in the ICU. Had some more hemorrhoidal bleeding. Received a total of 3 units of blood. No abdominal pain. No nausea vomiting. Review of systems: Was done for constitutional, cardiovascular, GI, pulmonary. relevant finding as above Active Medications Benzocaine/Menthol (Cepacol Lozenge) 1 each MUCOUS MEM Q4HR PRN PRN Reason: sore throat Last Admin: 07/21/19 23:42 Dose: 1 each Documented by: Ceftriaxone Sodium 1 gm/ (Sodium Chloride) 50 mls @ 100 mls/hr IVPB Q12HR [facility] Last Admin: 07/22/19 08:05 Dose: 100 mls/hr Documented by: Lorazepam (Ativan) 1 mg IV Q2HR PRN PRN Reason: CIWA 8 or 9 Lorazepam (Ativan) 1 mg IV Q1HR PRN PRN Reason: CIWA 10 to 15 Lorazepam (Ativan) 2 mg IV Q10M PRN PRN Reason: CIWA 16 or higher Stop: 07/23/19 17:44 Pantoprazole Sodium (Protonix) 40 mg IVP BID [facility] Last Admin: 07/22/19 08:05 Dose: 40 mg Documented by: Thiamine HCl (Vitamin B-1) 100 mg PO BID-W/MEALS [facility] Last Admin: 07/22/19 18:22 Dose: 100 mg Documented by: Physical examination: VITAL SIGNS: 98.4, 92, 16, 121/67, 99% room air, GENERAL: Propped up in bed, comfortable. EYES: [Pupils equal. Conjunctiva icterus l. HEENT: External appearance of nose and ears normal, oral cavity grossly normal. NECK: JVD not raised; masses not palpable. HEART: First and second heart sounds are normal; no edema. LUNGS: Respiratory rate normal; clear to auscultation. ABDOMEN: Soft, nontender, liver spleen not palpable, no masses palpable. Rectal exam not done PSYCH: Alert and oriented x3; mood and affect normal. INVESTIGATIONS, reviewed in the clinical context: White count 8.2 hemoglobin 6.6 Previous testing White count 9.3 hemoglobin 4.5 platelets 235 pro time 15.2 potassium 3.5 bun 3 creatinine 0.76 Total bilirubin 5.4 AST 101 Assessment: -Acute severe blood loss anemia. Patient has been bleeding intermittently from her hemorrhoids that appears to be the major determinant. Given that history of alcoholism and also taking Motrin intermittently upper GI bleed could also be contributing. -Chronic alcoholism -Hemorrhoidal bleeding, acute on chronic -Alcoholic liver disease Plan: Patient has received 3 units of blood. Hemoglobin 6.6 Transfuse another unit of blood. Await input from GI. Patient will need upper endoscopy. Care was discussed with the patient.
[2019-07-22 20:21] LABS: Anisocytosis Slight; Basophils # (A) 0.2 k/uL (0-0.2); Basophils % (A) 2 %; Eosinophils # (A) 0.1 k/uL (0-0.7); Eosinophils % (A) 1 %; HCT 23.4 % (34.0-46.0); HGB 7.2 gm/dL (11.4-16.0); Hypochromasia Marked; Lymphocytes # (A) 1.7 k/uL (1.0-4.8); Lymphocytes % (A) 18 %; MCH 27.5 pg (25.0-35.0); MCHC 30.8 g/dL (31.0-37.0); MCV 89.2 fL (80.0-100.0); Mean Platelet Volume 9.1; Monocytes # (A) 0.9 k/uL (0-1.0); Monocytes % (A) 9 %; Neutrophils # (A) 6.4 k/uL (1.3-7.7); Neutrophils % (A) 67 %; Platelet Count 191 k/uL (150-450); Poikilocytosis Marked; RBC 2.62 m/uL (3.80-5.40); RDW 16.5 % (11.5-15.5); WBC 9.5 k/uL (3.8-10.6)
--- NOTE | 2019-07-22 21:11 | CONS ---
CONSULTATION DATE OF DICTATION: 07/22/2019. REASON FOR CONSULTATION: Elevated LFTs and severe symptomatic anemia. HISTORY OF PRESENT ILLNESS: The patient is a 29-year-old pleasant white female with history of heavy alcohol abuse for more than 10 years' duration who has been drinking at least a pint a day. She was admitted to the hospital because of jaundice, severe anemia and intermittent rectal bleeding for the last 2 months' duration. The patient states that she did not feel well and thought she had a cold. She went to see her family physician. She was told she has jaundice and advised to go to the ER. In the ER, she was noted to have elevated bilirubin up to 5.1 g/dL and her hemoglobin was 4.6 g/dL. She received initially 2 units of blood transfusion. Repeat hemoglobin was 5.5, and then she got another unit of blood transfusion; the last hemoglobin is 6.6 g/dL. The patient has been complaining of intermittent rectal bleeding for the last 2 months. She has bright red blood with some clots almost on a daily basis. She was told she has some internal hemorrhoids. She denies any abdominal pain, reports no nausea, vomiting, no melena. She denies any fever, chills or night sweats. PAST MEDICAL HISTORY: Significant for alcohol abuse. PAST SURGICAL HISTORY: Tonsillectomy. MEDICATIONS: Medications at home include Motrin p.r.n., Mucinex and Zantac. ALLERGIES: NONE. SOCIAL HISTORY: No smoking. Heavy alcohol abuse, as mentioned above. FAMILY HISTORY: Unremarkable. REVIEW OF SYSTEMS: CARDIOPULMONARY: No chest pain or shortness of breath. GENITOURINARY: No dysuria or hematuria. MUSCULOSKELETAL: Unremarkable. SKIN: Unremarkable. ENDOCRINE: Unremarkable. PSYCHIATRIC: Unremarkable. NEUROLOGY: Unremarkable. ENT/VISION: Unremarkable. CONSTITUTIONAL: No recent weight loss. No fever, chills, night sweats. HEMATOLOGY: Severe anemia. PHYSICAL EXAMINATION: Blood pressure is 109/53, pulse rate 101, temperature 98.4. HEENT examination unremarkable. Conjunctivae pink. Sclerae anicteric. Oral cavity no lesions. NECK: No JVD or lymph node enlargement. CHEST: Clear to auscultation. HEART: Regular rate and rhythm. ABDOMEN: Soft. Bowel sounds are positive. No organomegaly. Liver was slightly tender. EXTREMITIES: No pedal edema. SKIN: No rashes. NEUROLOGIC: Alert and oriented x3. No focal deficits. LABS/IMAGING: Labs done at the time of admission to the hospital showed WBC 9.1, hemoglobin 4, platelets 207. MCV is 84. AST 101, ALT 16. Total bilirubin 5.4 and alkaline phosphatase 129. Hepatitis serologies for A, B and C are negative. Ultrasound of the abdomen done in the emergency room yesterday did show evidence of slight hepatomegaly, but otherwise no gallstones or biliary ductal dilation. IMPRESSION: 1. Severe anemia with intermittent rectal bleeding for the last 2 months' duration. Hemoglobin was 4, required 3 units of blood transfusion. Last hemoglobin is 6.5 g/dL. The patient has been having intermittent rectal bleeding for the last 2 months. 2. Elevated liver function tests and jaundice with AST more than ALT, all consistent with acute alcoholic hepatitis. 3. History of heavy alcohol abuse. RECOMMENDATIONS: 1. Agree with PRBC transfusion. 2. Proceed with EGD, colonoscopy tomorrow to investigate further. 3. Monitor CBC on a close basis and transfuse if worsening anemia. 4. I had a lengthy discussion with the patient regarding the importance of abstinence from alcohol. 5. Repeat labs in the morning. Will follow with you closely during her hospital stay. Thank you for this consultation. MMODL / IJN: [id number] /
[2019-07-23 04:46] LABS: Anisocytosis Slight; Basophils # (A) 0.2 k/uL (0-0.2); Basophils % (A) 2 %; Eosinophils # (A) 0.1 k/uL (0-0.7); Eosinophils % (A) 1 %; HCT 22.1 % (34.0-46.0); Hypochromasia Marked; Lymphocytes # (A) 1.9 k/uL (1.0-4.8); Lymphocytes % (A) 19 %; MCH 27.3 pg (25.0-35.0); MCHC 31.1 g/dL (31.0-37.0); MCV 87.5 fL (80.0-100.0); Mean Platelet Volume 8.6; Monocytes # (A) 0.9 k/uL (0-1.0); Monocytes % (A) 10 %; Neutrophils # (A) 6.2 k/uL (1.3-7.7); Neutrophils % (A) 64 %; Platelet Count 199 k/uL (150-450); Poikilocytosis Marked; RBC 2.52 m/uL (3.80-5.40); RDW 16.9 % (11.5-15.5); WBC 9.7 k/uL (3.8-10.6)
[2019-07-23 05:04] LABS: ALT 14 U/L (4-34); AST 82 U/L (14-36); African American GFR (CKD) >90 (>60 ml/min/1.73 sqM); Albumin 3.2 g/dL (3.5-5.0); Alkaline Phosphatase 107 U/L (38-126); Anion Gap 10 mmol/L; Blood Urea Nitrogen 3 mg/dL (7-17); Calcium 7.9 mg/dL (8.4-10.2); Carbon Dioxide 20 mmol/L (22-30); Chloride 108 mmol/L (98-107); Glucose 115 mg/dL (74-99); Non-African American GFR(CKD) >90 (>60 ml/min/1.73 sqM); Potassium 3.6 mmol/L (3.5-5.1); Sodium 138 mmol/L (137-145); Total Bilirubin 8.5 mg/dL (0.2-1.3); Total Protein 6.7 g/dL (6.3-8.2)
[2019-07-23 05:24] LABS: HGB 6.9 gm/dL (11.4-16.0)
[2019-07-23] MEDS ORDERED: PANTOPRAZOLE 40 MG TABLET PO SCH (07:30)
[2019-07-23] MEDS: THIAMINE 100 MG TAB PO SCH ×2 (08:16→20:30)
[2019-07-23] MEDS: PANTOPRAZOLE 40 MG/10 ML VIAL IVP SCH ×2 (08:30→20:30)
--- NOTE | 2019-07-23 08:48 | P.PN ---
Subjective Progress Note Date: 07/23/19 On 07/23/2019, the patient is awaiting EGD and colonoscopy. She had a few more episodes where she goes to have a bowel movement and she has asymptomatic bloody material coming out from her rectal area. There is obviously concern for hemorrhoids in addition to other potential sources of lower GI bleeding. Her hemoglobin today is at 6.9. She remains hemodynamically stable. She received a total of 3 units of packed RBC and with the monitoring the hemoglobin. General surgeries on the case. The patient had a calculus cholecystitis is on the ultrasound. She remains on IV Rocephin. No signs of delirium tremens. She remains nothing by mouth. She remains on IV Protonix. No other significant ev ents overnight. Objective - Vital Signs Vital signs: Vital Signs Temp 99.0 F 07/23/19 08:00 Pulse 94 07/23/19 08:00 Resp 11 L 07/23/19 08:00 BP 108/56 07/23/19 08:00 Pulse Ox 99 07/23/19 08:00 Intake & Output 07/22/19 07/23/19 07/23/19 18:59 06:59 18:59 Intake Total 670 4260 Output Total 1000 3050 Balance -330 1210 Weight 92.3 kg Intake: IV 670 10 Sodium Chloride 0.9% 1, 570 10 000 ml @ 100 mls/hr IV . Q10H7M ONE with Mvi, Adult No.4 with Vit K 10 ml with Thiamine 100 mg with Folic Acid 1 mg Rx#: [id number] cefTRIAXone 1 gm In 100 Sodium Chloride 0.9% 50 ml @ 100 mls/hr IVPB ONCE STA Rx#:[id number] Intake, IV Titration 50 Amount cefTRIAXone 1 gm In 50 Sodium Chloride 0.9% 50 ml @ 100 mls/hr IVPB Q12HR LOUIE Rx#:[id number] Oral 4200 Output: Urine 1000 0 Urine/Stool Mix 3050 Other: Voiding Method Bedside Commode Bedside Commode # Voids 1 # Bowel Movements 1 - Exam Gen. appearance, comfortable not in acute distress, she looks pale Head exam was generally normal. There was scleral icterus or corneal arcus. Mucous membranes were moist. Neck was supple and without jugular venous distension, thyromegaly, or carotid bruits. Carotids were easily palpable bilaterally. There was no adenopathy. Cardiac exam revealed the PMI to be normally situated and sized. The rhythm was regular and no extrasystoles were noted during several minutes of auscultation. The first and second heart sounds were normal and physiologic splitting of the second heart sound was noted. There were no murmurs, rubs, clicks, or gallops. Lungs were clear to auscultation and percussion, and with normal diaphragmatic excursion. No wheezes or rales were noted. Abdominal exam revealed normal bowel sounds. The abdomen was soft, non-tender, and without masses, organomegaly, or appreciable enlargement of the abdominal aorta. Examination of the extremities revealed easily palpable radial, femoral and pedal pulses. There was no cyanosis, clubbing or edema. Examination of the skin revealed no evidence of significant rashes, suspicious appearing nevi or other concerning lesions. Neurologically the patient is awake and alert and there is no focal neurological deficits. - Labs CBC & Chem 7: 07/23/19 04:16 07/23/19 04:16 Labs: Abnormal Lab Results - Last 24 Hours (Table) 07/21/19 07/22/19 07/22/19 Range/Units 15:50 12:51 19:58 RBC 2.39 L 2.62 L (3.80-5.40) m/uL Hgb 6.6 L* 7.2 L (11.4-16.0) gm/dL Hct 20.9 L 23.4 L (34.0-46.0) % MCHC 30.8 L (31.0-37.0) g/dL RDW 16.5 H 16.5 H (11.5-15.5) % Basophils # 0.3 H (0-0.2) k/uL Chloride (98-107) mmol/L Carbon Dioxide (22-30) mmol/L BUN (7-17) mg/dL Glucose (74-99) mg/dL Calcium (8.4-10.2) mg/dL Total Bilirubin (0.2-1.3) mg/dL AST (14-36) U/L Albumin (3.5-5.0) g/dL Crossmatch See Detail 07/23/19 07/23/19 Range/Units 04:16 04:16 RBC 2.52 L (3.80-5.40) m/uL Hgb 6.9 L* (11.4-16.0) gm/dL Hct 22.1 L (34.0-46.0) % MCHC (31.0-37.0) g/dL RDW 16.9 H (11.5-15.5) % Basophils # (0-0.2) k/uL Chloride 108 H (98-107) mmol/L Carbon Dioxide 20 L (22-30) mmol/L BUN 3 L (7-17) mg/dL Glucose 115 H (74-99) mg/dL Calcium 7.9 L (8.4-10.2) mg/dL Total Bilirubin 8.5 H (0.2-1.3) mg/dL AST 82 H (14-36) U/L Albumin 3.2 L (3.5-5.0) g/dL Crossmatch Microbiology - Last 24 Hours (Table) 07/21/19 14:26 Urine Culture - Final Urine,Clean Catch Assessment and Plan Plan: 1 anemia, subacute, probably related to gastrointestinal blood loss. The patient was having bright red blood per rectum. This is most likely a lower GI bleeding. Rule out diverticular bleed. Rule out hemorrhoidal bleeds. Rule out upper GI bleeding although this is a less likely possibility as the patient was not having any formal melanotic stools or dark tarry stools. Hemoglobin currently is down to 4.0 and the patient is symptomatic receiving a total of 3 units of packed RBC and the follow-up hemoglobin is up to 6.9. She is still having asymptomatic on and off episodic lower GI bleed. She remains on IV fluids at [facility]. She is nothing by mouth for now awaiting her EGD and colonoscopy. 3 mild coagulopathy with an INR of 1.5 4 hyperbilirubinemia, consider related to the chronic liver disease secondary to alcoholism and the bilirubin is up to 8.7 clinically she looks a bit more jaundiced compared to yesterday. As mentioned she has signs of a calculus cholecystitis on the ultrasound of the gallbladder. General surgeries on consult. 5 generalized weakness and exertional dyspnea secondary to anemia 6 suspected UTI with episodes of fever and abnormal UA, currently on IV Rocephin, and the urine cultures are still negative. 7 The patient has evidence of a calculus cholecystitis based on ultrasound findings and the patient has evidence of sonographic Carranza's sign being positive. No gallstones. Plan 1 continue monitoring the hemoglobin. EGD and colonoscopy 1 PM today. 2 watch for any signs of delirium tremens, none for now 3 Give the patient combination of thiamine and folate 4 IV Protonix, keep nothing by mouth 5. Gen. surgery consultation , gallbladder was noted and the patient has a calculus cholecystitis and signs of sonographic Carranza sign and the patient will need 6 Will transfer out of the intensive care unit once daily and colonoscopy is completed and the patient is accurately risk stratified for bleeding complications.
[2019-07-23 10:53] LABS: INR 1.6 (<1.2); Prothrombin Time 16.1 sec (9.0-12.0)
[2019-07-23] MEDS ORDERED: KETAMINE 10 MG/ML 20 ML VIAL ONE (13:25)
[2019-07-23] MEDS ORDERED: PROPOFOL 10 MG/ML 20 ML VIAL IV ONE (13:25)
[2019-07-23] MEDS ORDERED: LIDOCAINE 1% INJ 10MG/ML (20 ML MDV) ONE (13:25)
[2019-07-23] MEDS ORDERED: LACTATED RINGERS 1,000 ML IV ONE (13:27)
--- NOTE | 2019-07-23 13:42 | P.PCN ---
Date of Procedure: 07/23/19 Procedure(s) Performed: Brief history: Patient is a pleasant 29-year-old white female admitted hospital with severe symptomatic anemia and hemoglobin of 5.5 g/dL. She received 3 units of blood transfusion. She has been complaint with him intermittent rectal bleeding for the last 2 months duration. She is hence scheduled for an upper endoscopy as well as colonoscopy as a part of evaluation of severe anemia. Procedure performed: Esophagogastroduodenoscopy with biopsy Colonoscopy Preoperative diagnosis: Severe symptomatic anemia Rectal bleeding Anesthesia: MAC Procedure: After informed consent was obtained from the patient was brought into the endoscopy unit and IV sedation was administered by anesthesia under continuous monitoring. Initially upper endoscopy was done. The Olympus GF 160 video endoscope was inserted inserted into the mouth and esophagus intubated without any difficulty and was gradually advanced into the stomach and duodenum and carefully examined. The bulb and second part of the duodenum appeared normal. The scope was then withdrawn into the stomach adequately insufflated with air and upon careful examination the antrum and body, cardia and fundus appeared normal. The scope was then withdrawn into the esophagus. The GE junction was located at 40 cm to the incisors. It appeared regular with no erythema erosions or ulcerations. Rest of the esophagus appeared normal. Patient tolerated the procedure well. At this time the patient continued to remain sedation. Initial digital rectal examination was normal. Olympus CF 160 video colonoscope was then inserted into the rectum and gradually advanced to the cecum without any difficulty. Careful examination was performed as the scope was gradually being withdrawn. The prep was excellent. The cecum, ascending colon, transverse colon, descending colon, sigmoid colon and rectum appeared normal. Retroflexion was performed in the rectum and grade 2 internal hemorrhoids were noted. Patient tolerated the procedure well. Impression: 1. Upper endoscopy was essentially within normal limits with no evidence of esophagitis or peptic ulcer disease. 2. Colonoscopy revealed grade 2 internal hemorrhoids with no active bleeding Recommendations: Findings of this examination were discussed with the patient as well as her family. She'll be started on regular diet. Abstinence from alcohol. Monitor CBC on a daily basis.
--- NOTE | 2019-07-23 14:06 | P.GSCN ---
History of Present Illness Consult date: 07/23/19 Reason for Consult: bleeding hemorrhoids Requesting physician: Dann Sanford History of present illness: CHIEF COMPLAINT: bleeding hemorrhoids HISTORY OF PRESENT ILLNESS: 29 year old who originally presented to the hospital secondary to jaundice. Patient has a history of ETOH abuse and drinks a pint of alcohol a day. Patient was found to be anemic with a hemoglobin of 4.5. She is scheduled for EGD and colonoscopy today with Dr. Garcia. Patient underwent abdominal ultrasound which was negative for gallstones. No dilated ducts. Gallbladder wall is thickened consistent with acalculous cholecystitis. General surgery was consulted for further evaluation. Patient examined at the bedside with Dr. Gibbons. Patient denies any abdominal pain. PAST MEDICAL HISTORY: See list. PAST SURGICAL HISTORY: See list. SOCIAL HISTORY: No illicit drug use. REVIEW OF SYSTEMS: CONSTITUTIONAL: Denies fever or chills. HEENT: Denies blurred vision, vision changes, or eye pain. Denies hemoptysis CARDIOVASCULAR: Denies chest pain or pressure. RESPIRATORY: No shortness of breath. GASTROINTESTINAL: Refer to HPI for pertinent findings HEMATOLOGIC: Denies bleeding disorders. GENITOURINARY: Denies any blood in urine. SKIN: Denies pruitis. Denies rash. PHYSICAL EXAM: VITAL SIGNS: Reviewed. GENERAL: Well-developed in no acute distress. HEENT: Extraocular movements grossly intact. Moist buccal mucosa. Head is atraumatic, normocephalic. ABDOMEN: Soft. Nondistended. Nontender. NEUROLOGIC: Alert and oriented. Cranial nerves II through XII grossly intact. LABORATORY DATA: Most recent laboratory data reveals white count 9.7. Hemoglobin 6.9. Platelet count 199. INR 1.6. IMAGING: Abdominal ultrasound: Negative for gallstones. No dilated ducts. Gallbladder wall is thickened consistent with acalculous cholecystitis ASSESSMENT: 1. Rectal bleeding 2. Acute blood loss anemia 3. ETOH abuse 4. Acalculous cholecystitis PLAN: -Patient scheduled for EGD/Colonoscopy today with Dr. Garcia. Await results -Monitor hemoglobin -No immediate surgical intervention for gallbladder. Patient will require cholecystectomy in the future when she is medically stable. Nurse practitioner note has been reviewed by physician. Signing provider agrees with the documented findings, assessment, and plan of care. Past Medical History Past Medical History: No Reported History Additional Past Medical History / Comment(s): Alcoholism History of Any Multi-Drug Resistant Organisms: None Reported Past Surgical History: Tonsillectomy Additional Past Surgical History / Comment(s): jaw Past Psychological History: No Psychological Hx Reported Smoking Status: Never smoker Past Alcohol Use History: Abuse, Daily, Heavy Past Drug Use History: Marijuana Medications and Allergies Home Medications Medication Instructions Recorded Confirmed Type Ibuprofen [Motrin Ib] 800 mg PO Q6H PRN 07/21/19 07/21/19 History Phenylephrine/Dm/Acetaminop/GG 30 ml PO Q12H PRN 07/21/19 07/21/19 History [Mucinex Fast-Max Cold-Flu Liq] Ranitidine HCl [Zantac] 150 mg PO HS 07/21/19 07/21/19 History Allergies Allergy/AdvReac Type Severity Reaction Status Date / Time No Known Allergies Allergy Verified 07/21/19 18:19 Surgical - Exam Vital Signs Temp Pulse Resp BP Pulse Ox 99.1 F 128 H 20 125/79 100 07/21/19 14:10 07/21/19 14:10 07/21/19 14:10 07/21/19 14:10 07/21/19 14:10 Results - Labs 07/23/19 04:16 07/23/19 04:16 Abnormal Lab Results - Last 24 Hours (Table) 07/21/19 07/22/19 07/22/19 Range/Units 15:50 12:51 19:58 RBC 2.39 L 2.62 L (3.80-5.40) m/uL Hgb 6.6 L* 7.2 L (11.4-16.0) gm/dL Hct 20.9 L 23.4 L (34.0-46.0) % MCHC 30.8 L (31.0-37.0) g/dL RDW 16.5 H 16.5 H (11.5-15.5) % Basophils # 0.3 H (0-0.2) k/uL PT (9.0-12.0) sec INR (<1.2) Chloride (98-107) mmol/L Carbon Dioxide (22-30) mmol/L BUN (7-17) mg/dL Glucose (74-99) mg/dL Calcium (8.4-10.2) mg/dL Total Bilirubin (0.2-1.3) mg/dL AST (14-36) U/L Albumin (3.5-5.0) g/dL Crossmatch See Detail 07/23/19 07/23/19 07/23/19 Range/Units 04:16 04:16 08:52 RBC 2.52 L (3.80-5.40) m/uL Hgb 6.9 L* (11.4-16.0) gm/dL Hct 22.1 L (34.0-46.0) % MCHC (31.0-37.0) g/dL RDW 16.9 H (11.5-15.5) % Basophils # (0-0.2) k/uL PT 16.1 H (9.0-12.0) sec INR 1.6 H (<1.2) Chloride 108 H (98-107) mmol/L Carbon Dioxide 20 L (22-30) mmol/L BUN 3 L (7-17) mg/dL Glucose 115 H (74-99) mg/dL Calcium 7.9 L (8.4-10.2) mg/dL Total Bilirubin 8.5 H (0.2-1.3) mg/dL AST 82 H (14-36) U/L Albumin 3.2 L (3.5-5.0) g/dL Crossmatch Microbiology - Last 24 Hours (Table) 07/21/19 14:26 Urine Culture - Final Urine,Clean Catch Diabetes panel 07/23/19 Range/Units 04:16 Sodium 138 (137-145) mmol/L Potassium 3.6 (3.5-5.1) mmol/L Chloride 108 H (98-107) mmol/L Carbon Dioxide 20 L (22-30) mmol/L BUN 3 L (7-17) mg/dL Creatinine 0.56 (0.52-1.04) mg/dL Glucose 115 H (74-99) mg/dL Calcium 7.9 L (8.4-10.2) mg/dL AST 82 H (14-36) U/L ALT 14 (4-34) U/L Alkaline Phosphatase 107 (38-126) U/L Total Protein 6.7 (6.3-8.2) g/dL Albumin 3.2 L (3.5-5.0) g/dL Calcium panel 07/23/19 Range/Units 04:16 Calcium 7.9 L (8.4-10.2) mg/dL Albumin 3.2 L (3.5-5.0) g/dL Pituitary panel 07/23/19 Range/Units 04:16 Sodium 138 (137-145) mmol/L Potassium 3.6 (3.5-5.1) mmol/L Chloride 108 H (98-107) mmol/L Carbon Dioxide 20 L (22-30) mmol/L BUN 3 L (7-17) mg/dL Creatinine 0.56 (0.52-1.04) mg/dL Glucose 115 H (74-99) mg/dL Calcium 7.9 L (8.4-10.2) mg/dL Adrenal panel 07/23/19 Range/Units 04:16 Sodium 138 (137-145) mmol/L Potassium 3.6 (3.5-5.1) mmol/L Chloride 108 H (98-107) mmol/L Carbon Dioxide 20 L (22-30) mmol/L BUN 3 L (7-17) mg/dL Creatinine 0.56 (0.52-1.04) mg/dL Glucose 115 H (74-99) mg/dL Calcium 7.9 L (8.4-10.2) mg/dL Total Bilirubin 8.5 H (0.2-1.3) mg/dL AST 82 H (14-36) U/L ALT 14 (4-34) U/L Alkaline Phosphatase 107 (38-126) U/L Total Protein 6.7 (6.3-8.2) g/dL Albumin 3.2 L (3.5-5.0) g/dL
--- NOTE | 2019-07-23 23:46 | P.PN ---
Progress Note - Text Progress Note Date: 07/23/19 Chief Complaint: Severe anemia Interval history: This is a pleasant 29-year-old patient of Dr. Blas. Patient is a long- standing history of drinking alcohol. Patient has been drinking alcohol or above for quite some time. More so in the last 1 year. She will drink anywhere from half to point toward, who whiskey everyday. She'll sometimes will take Motrin also. Patient also has hemorrhoids and does intermittently bleed. More so recently. Patient's had not any menstrual cycle for last 2 months. Patient went to the urgent care for upper respiratory tract infection symptoms. Also noticed to be jaundiced. dter. Hemoglobin was found to be 4.5. Patient's hemorrhoids have been bleeding more so recently. 2 units of blood was ordered and patient admitted to the ICU. Denies any abdominal pain. Today-remains in the ICU. Underwent EGD colonoscopy today. Rectal internal hemorrhoids were found. No upper GI pathology found. Start her diet. Review of systems: Was done for constitutional, cardiovascular, GI, pulmonary. relevant finding as above Active Medications Benzocaine/Menthol (Cepacol Lozenge) 1 each MUCOUS MEM Q4HR PRN PRN Reason: sore throat Last Admin: 07/21/19 23:42 Dose: 1 each Documented by: Ceftriaxone Sodium 1 gm/ (Sodium Chloride) 50 mls @ 100 mls/hr IVPB Q12HR [facility] Last Admin: 07/23/19 20:30 Dose: 100 mls/hr Documented by: Lorazepam (Ativan) 1 mg IV Q2HR PRN PRN Reason: CIWA 8 or 9 Lorazepam (Ativan) 1 mg IV Q1HR PRN PRN Reason: CIWA 10 to 15 Pantoprazole Sodium (Protonix) 40 mg IVP BID [facility] Last Admin: 07/23/19 20:30 Dose: 40 mg Documented by: Thiamine HCl (Vitamin B-1) 100 mg PO BID-W/MEALS [facility] Last Admin: 07/23/19 20:30 Dose: 100 mg Documented by: Physical examination: VITAL SIGNS: At 10, 94, 16, 108/56, 99% room air GENERAL: Sitting up, comfortable EYES: [Pupils equal. Conjunctiva icterus l. HEENT: External appearance of nose and ears normal, oral cavity grossly normal. NECK: JVD not raised; masses not palpable. HEART: First and second heart sounds are normal; no edema. LUNGS: Respiratory rate normal; clear to auscultation. ABDOMEN: Soft, nontender, liver spleen not palpable, no masses palpable. Rectal exam not done PSYCH: Alert and oriented x3; mood and affect normal. INVESTIGATIONS, reviewed in the clinical context: Hemoglobin 6.9 Previous testing White count 9.3 hemoglobin 4.5 platelets 235 pro time 15.2 potassium 3.5 bun 3 creatinine 0.76 Total bilirubin 5.4 AST 101 Assessment: -Acute severe blood loss anemia. From internal hemorrhoids -Chronic alcoholism -Hemorrhoidal bleeding, acute on chronic. Internal hemorrhoids great toe -Alcoholic liver disease Plan: Patient's hemoglobin is both at 6.9. We will give an elevated of blood. Repeat CBC in the morning. We will watch for 24 hours. Patient will be transferred to the ICU. Discussed with patient
[2019-07-24] MEDS: PHYTONADIONE ORAL 5 MG/5 ML ORAL.SYRG PO SCH ×2 (00:10→07:51)
[2019-07-24 05:44] LABS: Anisocytosis Slight; Basophils # (A) 0.1 k/uL (0-0.2); Basophils % (A) 1 %; Eosinophils # (A) 0.1 k/uL (0-0.7); Eosinophils % (A) 2 %; HCT 22.7 % (34.0-46.0); HGB 7.3 gm/dL (11.4-16.0); Hypochromasia Marked; Lymphocytes # (A) 1.9 k/uL (1.0-4.8); Lymphocytes % (A) 24 %; MCH 28.5 pg (25.0-35.0); MCHC 32.3 g/dL (31.0-37.0); MCV 88.4 fL (80.0-100.0); Mean Platelet Volume 9.2; Monocytes # (A) 0.8 k/uL (0-1.0); Monocytes % (A) 10 %; Neutrophils # (A) 4.7 k/uL (1.3-7.7); Neutrophils % (A) 61 %; Platelet Count 194 k/uL (150-450); Poikilocytosis Marked; RBC 2.57 m/uL (3.80-5.40); RDW 16.6 % (11.5-15.5); WBC 7.7 k/uL (3.8-10.6)
[2019-07-24 05:55] LABS: ALT 12 U/L (4-34); AST 78 U/L (14-36); African American GFR (CKD) >90 (>60 ml/min/1.73 sqM); Albumin 2.9 g/dL (3.5-5.0); Alkaline Phosphatase 95 U/L (38-126); Anion Gap 7 mmol/L; Blood Urea Nitrogen 4 mg/dL (7-17); Calcium 7.7 mg/dL (8.4-10.2); Carbon Dioxide 20 mmol/L (22-30); Chloride 109 mmol/L (98-107); Glucose 89 mg/dL (74-99); Non-African American GFR(CKD) >90 (>60 ml/min/1.73 sqM); Potassium 3.9 mmol/L (3.5-5.1); Sodium 136 mmol/L (137-145); Total Bilirubin 8.1 mg/dL (0.2-1.3); Total Protein 6.3 g/dL (6.3-8.2)
[2019-07-24 06:53] VITALS: BP 117/77; PULSE 84; RESP 19; TEMP 98.8
[2019-07-24] MEDS: THIAMINE 100 MG TAB PO SCH (07:49)
--- NOTE | 2019-07-24 09:54 | P.PN ---
<Nereyda Man - Last Filed: 07/24/19 10:15> Subjective Progress Note Date: 07/24/19 Principal diagnosis: Anemia The patient is seen today 07/24/2019 in follow-up in the intensive care unit. She is MedSurg overflow. She is currently sitting up in bed. Awake and alert in no acute distress. She did undergo EGD that was found to be within normal limits no ulcers or active bleeding. She did undergo colonoscopy that showed some internal hemorrhoids but no active bleeding. She denies any shortness of breath, cough or congestion. She is maintaining O2 saturations in the 90s on room air. Currently afebrile. Hemodynamically stable. She is status post 4 units of packed red blood cells this admission. Current hemoglobin 7.3. Platelet count 194,000. INR 1.6. Urine culture reveals no growth. White count 7.7. Sodium 136. Bicarb 20. Creatinine 0.57. She remains on the CIWA protoc ol. No Ativan required. Receiving vitamin K and thiamine. Objective - Vital Signs Vital signs: Vital Signs Temp 98.8 F 07/24/19 06:52 Pulse 84 07/24/19 06:52 Resp 19 07/24/19 06:52 BP 117/77 07/24/19 06:52 Pulse Ox 98 07/24/19 06:52 Intake & Output 07/23/19 07/24/19 07/24/19 18:59 06:59 18:59 Intake Total 300 1320 Output Total 1200 Balance -900 1320 Intake: IV 300 50 cefTRIAXone 1 gm In 100 50 Sodium Chloride 0.9% 50 ml @ 100 mls/hr IVPB Q12HR [facility] Rx#:[id number] Oral 960 Blood Product 310 Rc As-1 Unit 310 [id number] Output: Urine 0 Urine/Stool Mix 1200 Other: Voiding Method Bedside Commode Bedside Commode # Voids 0 - Exam GENERAL EXAM: Alert, active, pleasant 29-year-old female, on room air comfortable in no apparent distress. HEAD: Normocephalic. EYES: Normal reaction of pupils, equal size. NOSE: Clear with pink turbinates. THROAT: No erythema or exudates. NECK: No masses, no JVD. CHEST: No chest wall deformity. LUNGS: Equal air entry with no crackles, wheeze, rhonchi or dullness. CVS: S1 and S2 normal with no audible murmur, regular rhythm. ABDOMEN: No hepatosplenomegaly, normal bowel sounds, no guarding or rigidity. SPINE: No scoliosis or deformity SKIN: No rashes CENTRAL NERVOUS SYSTEM: No focal deficits, tone is normal in all 4 extremities. EXTREMITIES: There is no peripheral edema. No clubbing, no cyanosis. Peripheral pulses are intact. - Labs CBC & Chem 7: 07/24/19 05:08 07/24/19 05:08 Labs: Abnormal Lab Results - Last 24 Hours (Table) 07/21/19 07/23/19 07/24/19 Range/Units 15:50 08:52 05:08 RBC (3.80-5.40) m/uL Hgb (11.4-16.0) gm/dL Hct (34.0-46.0) % RDW (11.5-15.5) % PT 16.1 H (9.0-12.0) sec INR 1.6 H (<1.2) Sodium 136 L (137-145) mmol/L Chloride 109 H (98-107) mmol/L Carbon Dioxide 20 L (22-30) mmol/L BUN 4 L (7-17) mg/dL Calcium 7.7 L (8.4-10.2) mg/dL Total Bilirubin 8.1 H (0.2-1.3) mg/dL AST 78 H (14-36) U/L Albumin 2.9 L (3.5-5.0) g/dL Crossmatch See Detail 07/24/19 Range/Units 05:08 RBC 2.57 L (3.80-5.40) m/uL Hgb 7.3 L (11.4-16.0) gm/dL Hct 22.7 L (34.0-46.0) % RDW 16.6 H (11.5-15.5) % PT (9.0-12.0) sec INR (<1.2) Sodium (137-145) mmol/L Chloride (98-107) mmol/L Carbon Dioxide (22-30) mmol/L BUN (7-17) mg/dL Calcium (8.4-10.2) mg/dL Total Bilirubin (0.2-1.3) mg/dL AST (14-36) U/L Albumin (3.5-5.0) g/dL Crossmatch Assessment and Plan Assessment: 1 anemia, subacute, probably related to gastrointestinal blood loss. The patient was having bright red blood per rectum. EGD revealed no evidence of esophagitis or peptic ulcer disease. Colonoscopy revealed grade 2 internal hemorrhoids with no active bleeding. 3 mild coagulopathy with an INR of 1.6 4 hyperbilirubinemia, consider related to the chronic liver disease secondary to alcoholism and the bilirubin is up to 8.1 clinically she looks a bit more jaundiced compared to yesterday. As mentioned she has signs of a calculus cholecystitis on the ultrasound of the gallbladder. General surgeries on consult. 5 generalized weakness and exertional dyspnea secondary to anemia 6 suspected UTI with episodes of fever and abnormal UA, currently on IV Rocephin, and the urine cultures are still negative. 7 The patient has evidence of a calculus cholecystitis based on ultrasound findings and the patient has evidence of sonographic Carranza's sign being positive. No gallstones. Plan: The patient was seen and evaluated by Dr. Ohara. She is currently stable from the pulmonary and critical care standpoint. EGD and colonoscopy results reviewed. No active bleeding. Hemoglobin 7.3. We'll continue to monitor her hemoglobins. Home once cleared by GI services. I, the cosigning physician, performed a history & physical examination of the patient. Lungs sounds are clear. Maintaining good O2 saturations in the 90s on room air. I discussed the assessment and plan of care with my nurse practitioner, Nereyda Man. I attest to the above note as dictated by her. <Jojo Ohara - Last Filed: 07/24/19 10:20> Objective - Vital Signs Vital signs: Vital Signs Temp 98.8 F 07/24/19 06:52 Pulse 84 07/24/19 06:52 Resp 19 07/24/19 06:52 BP 117/77 07/24/19 06:52 Pulse Ox 98 07/24/19 06:52 Intake & Output 07/23/19 07/24/19 07/24/19 18:59 06:59 18:59 Intake Total 300 1320 Output Total 1200 Balance -900 1320 Intake: IV 300 50 cefTRIAXone 1 gm In 100 50 Sodium Chloride 0.9% 50 ml @ 100 mls/hr IVPB Q12HR [facility] Rx#:[id number] Oral 960 Blood Product 310 Rc As-1 Unit 310 [id number] Output: Urine 0 Urine/Stool Mix 1200 Other: Voiding Method Bedside Commode Bedside Commode # Voids 0 - Labs CBC & Chem 7: 07/24/19 05:08 07/24/19 05:08 Labs: Abnormal Lab Results - Last 24 Hours (Table) 07/21/19 07/23/19 07/24/19 Range/Units 15:50 08:52 05:08 RBC (3.80-5.40) m/uL Hgb (11.4-16.0) gm/dL Hct (34.0-46.0) % RDW (11.5-15.5) % PT 16.1 H (9.0-12.0) sec INR 1.6 H (<1.2) Sodium 136 L (137-145) mmol/L Chloride 109 H (98-107) mmol/L Carbon Dioxide 20 L (22-30) mmol/L BUN 4 L (7-17) mg/dL Calcium 7.7 L (8.4-10.2) mg/dL Total Bilirubin 8.1 H (0.2-1.3) mg/dL AST 78 H (14-36) U/L Albumin 2.9 L (3.5-5.0) g/dL Crossmatch See Detail 07/24/19 Range/Units 05:08 RBC 2.57 L (3.80-5.40) m/uL Hgb 7.3 L (11.4-16.0) gm/dL Hct 22.7 L (34.0-46.0) % RDW 16.6 H (11.5-15.5) % PT (9.0-12.0) sec INR (<1.2) Sodium (137-145) mmol/L Chloride (98-107) mmol/L Carbon Dioxide (22-30) mmol/L BUN (7-17) mg/dL Calcium (8.4-10.2) mg/dL Total Bilirubin (0.2-1.3) mg/dL AST (14-36) U/L Albumin (3.5-5.0) g/dL Crossmatch Assessment and Plan Assessment: Has internal hemorrhoids. No evidence of any other alternative source of bleed for now. EGD and colonoscopy was noted. She is coagulopathic. She does have chronic liver insufficiency related to alcoholism. She will be transferred out of the intensive care unit today, follow-up with GI, follow-up with general surgery regarding acalculus cholecystitis
--- NOTE | 2019-07-24 13:03 | P.PN ---
Subjective Progress Note Date: 07/24/19 CHIEF COMPLAINT: bleeding hemorrhoids HISTORY OF PRESENT ILLNESS: Patient examined at the bedside. She denies further rectal bleeding. Hemoglobin 7.3. Denies abdominal pain. Denies nausea or vomiting. Vital signs stable. PHYSICAL EXAM: VITAL SIGNS: Reviewed. GENERAL: Well-developed in no acute distress. HEENT: Extraocular movements grossly intact. Moist buccal mucosa. Head is atraumatic, normocephalic. ABDOMEN: Soft. Nondistended. Nontender. NEUROLOGIC: Alert and oriented. Cranial nerves II through XII grossly intact. ASSESSMENT: 1. Rectal bleeding 2. Acute blood loss anemia 3. ETOH abuse 4. Acalculous cholecystitis PLAN: -Diet as tolerated -Monitor hemoglobin -No immediate surgical intervention for gallbladder. Patient will require cholecystectomy in the future when she is medically stable. Nurse practitioner note has been reviewed by physician. Signing provider agrees with the documented findings, assessment, and plan of care. Objective - Vital Signs Vital signs: Vital Signs Temp 98.8 F 07/24/19 06:52 Pulse 84 07/24/19 06:52 Resp 19 07/24/19 06:52 BP 117/77 07/24/19 06:52 Pulse Ox 98 07/24/19 06:52 Intake & Output 07/23/19 07/24/19 07/24/19 18:59 06:59 18:59 Intake Total 300 1320 Output Total 1200 Balance -900 1320 Intake: IV 300 50 cefTRIAXone 1 gm In 100 50 Sodium Chloride 0.9% 50 ml @ 100 mls/hr IVPB Q12HR [facility] Rx#:[id number] Oral 960 Blood Product 310 Rc As-1 Unit 310 [id number] Output: Urine 0 Urine/Stool Mix 1200 Other: Voiding Method Bedside Commode Bedside Commode # Voids 0 - Labs CBC & Chem 7: 07/24/19 05:08 07/24/19 05:08 Labs: Abnormal Lab Results - Last 24 Hours (Table) 07/21/19 07/24/19 07/24/19 Range/Units 15:50 05:08 05:08 RBC 2.57 L (3.80-5.40) m/uL Hgb 7.3 L (11.4-16.0) gm/dL Hct 22.7 L (34.0-46.0) % RDW 16.6 H (11.5-15.5) % Sodium 136 L (137-145) mmol/L Chloride 109 H (98-107) mmol/L Carbon Dioxide 20 L (22-30) mmol/L BUN 4 L (7-17) mg/dL Calcium 7.7 L (8.4-10.2) mg/dL Total Bilirubin 8.1 H (0.2-1.3) mg/dL AST 78 H (14-36) U/L Albumin 2.9 L (3.5-5.0) g/dL Crossmatch See Detail
--- NOTE | 2019-07-24 23:49 | P.DS ---
Providers Date of admission: 07/21/19 18:02 Expected date of discharge: 07/24/19 Attending physician: Dann Sanford Consults: 07/21/19 17:40 Consult Physician Stat Consulting Provider: Jojo Ohara Consult Reason/Comments: ICU management Do you want consulting provider notified?: Already Contacted Consult Physician Urgent Consulting Provider: Jeniffer Garcia Consult Reason/Comments: GI bleed, anemia, alcoholic hepatitis Do you want consulting provider notified?: Yes 07/22/19 14:27 Consult Physician Routine Consulting Provider: Tejas Gibbons Consult Reason/Comments: Bleeding hemorrhoids Do you want consulting provider notified?: Yes Primary care physician: [facility] Course: Chief Complaint: Severe anemia Interval history: This is a pleasant 29-year-old patient of Dr. Blas. Patient is a long- standing history of drinking alcohol. Patient has been drinking alcohol or above for quite some time. More so in the last 1 year. She will drink anywhere from half to point toward, who whiskey everyday. She'll sometimes will take Motrin also. Patient also has hemorrhoids and does intermittently bleed. More so recently. Patient's had not any menstrual cycle for last 2 months. Patient went to the urgent care for upper respiratory tract infection symptoms. Also noticed to be jaundiced. dter. Hemoglobin was found to be 4.5. Patient's hemorrhoids have been bleeding more so recently. 2 units of blood was ordered and patient admitted to the ICU. Denies any abdominal pain. EGD was unremarkable. Colonoscopy showed internal hemorrhoids. Patient received a total of 4 units of blood. Patient did have some low-grade fever felt to be related to transfusion. Clinically no evidence of infection. Today-doing better. Tolerated diet. Mother the bedside. No new issues. No further bleeding. Care was discussed in detail with the patient. Questions were answered. Patient was cleared both by GI and surgery to go home. Patient will be going and staying with her mother. Alcohol abstinence was again discussed. Discussion and discharge planning more than 35 minutes Consultation: Dr. Ohara from critical care Dr. Yasmin Garcia from GI Dr. Sharma from general surgery Physical examination: VITAL SIGNS: 98.8, 84, 19, 11 01/13/1977, 98% room air GENERAL: Sitting up, comfortable EYES: [Pupils equal. Conjunctiva icterus l. HEENT: External appearance of nose and ears normal, oral cavity grossly normal. NECK: JVD not raised; masses not palpable. HEART: First and second heart sounds are normal; no edema. LUNGS: Respiratory rate normal; clear to auscultation. ABDOMEN: Soft, nontender, liver spleen not palpable, no masses palpable. Rectal exam not done PSYCH: Alert and oriented x3; mood and affect normal. INVESTIGATIONS, reviewed in the clinical context: Hemoglobin 7.3 Previous testing White count 9.3 hemoglobin 4.5 platelets 235 pro time 15.2 potassium 3.5 bun 3 creatinine 0.76 Total bilirubin 5.4 AST 101 Assessment: -Acute severe blood loss anemia. From internal hemorrhoids -Chronic alcoholism -Hemorrhoidal bleeding, acute on chronic. Internal hemorrhoids grade 2 -Alcoholic liver disease -Coagulopathy from liver disease with a prolonged pro time Disposition: Home Patient Condition at Discharge: Stable Plan - Discharge Summary New Discharge Prescriptions: New Famotidine [Pepcid] 20 mg PO BID #60 tablet Discontinued Ranitidine HCl [Zantac] 150 mg PO HS Ibuprofen [Motrin Ib] 800 mg PO Q6H PRN PRN Reason: Pain Or Fever > 100.5 Phenylephrine/Dm/Acetaminop/GG [Mucinex Fast-Max Cold-Flu Liq] 30 ml PO Q12H PRN PRN Reason: Cough Discharge Medication List Famotidine [Pepcid] 20 mg PO BID #60 tablet 07/24/19 [Rx] Follow up Appointment(s)/Referral(s): Sky Blas DO [Primary Care Provider] - 07/29/19 2:20 pm Jeanie Foley MD [STAFF PHYSICIAN] - 07/29/19 8:00 am Jeniffer Garcia MD [STAFF PHYSICIAN] - 07/30/19 2:30 pm Patient Instructions/Handouts: Gastrointestinal Bleeding (DC) Activity/Diet/Wound Care/Special Instructions: Contact CM at [facility] for indigents funds Discharge if okay with GI and general surgery. Get follow up orders. Discharge Disposition: HOME SELF-CARE
== END 2019-07-24 16:17 | disposition home or self-care (01) | DRG 394 ==
LOC: EC 14:03 → 2SICU 18:02
PROVIDERS: ADMIT Hospitalist; ATTEND Hospitalist
PROC: 30233N1 Transfusion of Nonautologous Red Blood Cells into Peripheral Vein, Percutaneous Approach (ICD-10-PCS; 2019-07-21)
PROC: 0DB98ZX Excision of Duodenum, Via Natural or Artificial Opening Endoscopic, Diagnostic (ICD-10-PCS; principal; 2019-07-23 07:30)
PROC: 0DJD8ZZ Inspection of Lower Intestinal Tract, Via Natural or Artificial Opening Endoscopic (ICD-10-PCS; 2019-07-23 07:30)
DX: K64.1 Second degree hemorrhoids (principal); D62 Acute posthemorrhagic anemia; D68.4 Acquired coagulation factor deficiency; F10.288 Alcohol dependence with other alcohol-induced disorder; E87.2 Acidosis; N17.9 Acute kidney failure, unspecified; F17.210 Nicotine dependence, cigarettes, uncomplicated; K70.10 Alcoholic hepatitis without ascites; K81.9 Cholecystitis, unspecified; K52.9 Noninfective gastroenteritis and colitis, unspecified; K44.9 Diaphragmatic hernia without obstruction or gangrene; Z63.4 Disappearance and death of family member
CPT/HCPCS: 36415; 36430; 43239; 45378; 76705; 80048; 80053; 80074; 80329; 81001; 81025; 82150; 83690; 85025; 85610; 85730; 86850; 86900; 86901; 86920; 87086; 88305; 96365; 96366; 99291

== ENCOUNTER → 2019-07-30 | Outpatient (CLI) | payer SELFPAY ==
[2019-07-30 16:43] LABS: Anisocytosis Slight; Basophils # (A) 0.1 k/uL (0-0.2); Basophils % (A) 1 %; Eosinophils # (A) 0.3 k/uL (0-0.7); Eosinophils % (A) 3 %; HCT 31.4 % (34.0-46.0); Hypochromasia Marked; Lymphocytes # (A) 1.6 k/uL (1.0-4.8); Lymphocytes % (A) 16 %; MCH 27.5 pg (25.0-35.0); MCHC 30.2 g/dL (31.0-37.0); MCV 91.1 fL (80.0-100.0); Mean Platelet Volume 8.7; Monocytes # (A) 0.5 k/uL (0-1.0); Monocytes % (A) 5 %; Neutrophils # (A) 7.1 k/uL (1.3-7.7); Neutrophils % (A) 72 %; Platelet Count 309 k/uL (150-450); Poikilocytosis Slight; RBC 3.45 m/uL (3.80-5.40); RDW 18.8 % (11.5-15.5); WBC 9.8 k/uL (3.8-10.6)
[2019-07-30 16:57] LABS: INR 1.7 (<1.2); Prothrombin Time 16.3 sec (9.0-12.0)
[2019-07-30 16:58] LABS: HGB 9.5 gm/dL (11.4-16.0)
[2019-07-31 00:44] LABS: Albumin 3.7 g/dL (3.80-4.90); Albumin/Globulin Ratio 1.09 (1.60-3.17); Bilirubin,Unconjugated 4.4 mg/dL; Globulin 3.4 g/dL (1.6-3.3); Total Protein 7.1 g/dL (6.2-8.2)
[2019-07-31 07:21] LABS: Total Bilirubin 15.4 mg/dL (0.2-1.2)
== END | disposition home or self-care (01) ==
LOC: LABWHC1 16:17
PROVIDERS: ATTEND Internal Medicine Gastroenterology
DX: K70.10 Alcoholic hepatitis without ascites (principal)
CPT/HCPCS: 36415; 80076; 85025; 85610

== ENCOUNTER → 2019-08-14 | Outpatient (CLI) | payer SELFPAY ==
[2019-08-14 11:46] LABS: Anisocytosis Moderate; Basophils # (A) 0.1 k/uL (0-0.2); Basophils % (A) 1 %; Eosinophils # (A) 0.3 k/uL (0-0.7); Eosinophils % (A) 4 %; HGB 10.5 gm/dL (11.4-16.0); Hypochromasia Marked; Lymphocytes # (A) 1.9 k/uL (1.0-4.8); Lymphocytes % (A) 23 %; MCH 27.1 pg (25.0-35.0); MCHC 29.1 g/dL (31.0-37.0); MCV 93.1 fL (80.0-100.0); Macrocytosis Slight; Mean Platelet Volume 8.3; Microcytosis Slight; Monocytes # (A) 0.3 k/uL (0-1.0); Monocytes % (A) 3 %; Neutrophils # (A) 5.7 k/uL (1.3-7.7); Neutrophils % (A) 68 %; Platelet Count 294 k/uL (150-450); RBC 3.87 m/uL (3.80-5.40); RDW 21.7 % (11.5-15.5); WBC 8.4 k/uL (3.8-10.6)
[2019-08-14 17:17] LABS: African American GFR (CKD) 135.7 (60.0-200.0); Albumin 3.8 g/dL (3.80-4.90); Albumin/Globulin Ratio 1.19 (1.60-3.17); Anion Gap 7.1 mmol/L (4.00-12.00); Calcium 9.2 mg/dL (8.7-10.3); Carbon Dioxide 23.9 mmol/L (21.6-31.8); Globulin 3.2 g/dL (1.6-3.3); Non-African American GFR(CKD) 117.1 (60.0-200.0); Total Bilirubin 7.6 mg/dL (0.2-1.2)
== END | disposition home or self-care (01) ==
LOC: LABWHC1 10:37
PROVIDERS: ATTEND Internal Medicine Gastroenterology
DX: K70.10 Alcoholic hepatitis without ascites (principal)
CPT/HCPCS: 36415; 80053; 85025

== ENCOUNTER → 2023-10-30 | Outpatient (CLI) | payer OTHER ==
--- NOTE | 2023-10-30 10:18 | US ---
EXAMINATION TYPE: US abdomen complete DATE OF EXAM: 10/30/2023 COMPARISON: US 07/31/2019 CLINICAL INDICATION: Female, 33 years old with history of R17 UNSPECIFIED JAUNDICE; Jaundice. TECHNIQUE: Multiple sonographic images of the abdomen are obtained. FINDINGS: EXAM MEASUREMENTS: Liver Length: 14.4 cm Gallbladder Wall: 0.4 cm CBD: 0.3 cm Spleen: 11.8 cm Right Kidney: 13.3 x 7.0 x 4.0 cm Left Kidney: 13.1 x 5.3 x 5.3 cm [employer] NOTES: Exam is limited due to gas. Pancreas: Not well seen Liver: Appears very coarse in echotexture/heterogeneous. Gallbladder: Wall appears to be jagged and thickened at 0.4 cm. Evidence for sonographic Carranza's sign: No CBD: Appears wnl Spleen: Appears wnl Right Kidney: Enlarged Left Kidney: Enlarged Upper IVC: Appears prominent- question enlarged 3.8 cm AP Abd Aorta: Appears wnl IMPRESSION: 1. Mild gallbladder wall thickening 0.4 cm. Some mild irregularity without discrete mass may be withi n the gallbladder. Short-term monitoring recommended. 2. Mild prominence of the inferior vena cava may be related to volume status.
== END | disposition home or self-care (01) ==
LOC: RADUSWWP 08:55
PROVIDERS: ATTEND Family Medicine
DX: K82.8 Other specified diseases of gallbladder (principal); R17 Unspecified jaundice
CPT/HCPCS: 76700

== ENCOUNTER 2024-02-05 09:29 | Day surgery (SDC) | payer OTHER ==
[2024-01-30 13:21] VITALS: BMI 26.6
[~2024-02-05 09:29] MED LIST: LIDOCAINE 1% (10MG/ML) FOR IV START INTRADERMA PRN
[2024-02-05 09:46] VITALS: RESP 16; TEMP 98
[2024-02-05] MEDS: IV FLUID CONTINUATION 1,000 ML IV ONE (09:55)
[2024-02-05] MEDS: LACTATED RINGERS 1,000 ML IV SCH (09:56)
[2024-02-05] MEDS ORDERED: PROPOFOL 10 MG/ML 20 ML VIAL IV ONE (10:34)
--- NOTE | 2024-02-05 10:50 | P.PCN ---
Date of Procedure: 02/05/24 Procedure(s) Performed: BRIEF HISTORY: Patient is a 33-year-old, pleasant, white female scheduled for an upper endoscopy as a part of screening for esophageal varices. Patient diagnosed with history of alcoholic liver cirrhosis 3 months ago.. PROCEDURE PERFORMED: Esophagogastroduodenoscopy with biopsy. PREOPERATIVE DIAGNOSIS: History of liver cirrhosis screening for esophageal varices. IV sedation per anesthesia. PROCEDURE: After informed consent was obtained, the patient was brought into the endoscopy unit. IV sedation was administered by Anesthesia under continuous monitoring. Initially the Olympus GIF-140 video endoscope was inserted into the mouth. Esophagus intubated without any difficulty. It was gradually advanced into the stomach and duodenum and carefully examined. The bulb and the second part of the duodenum appeared normal. The scope at this time was withdrawn to the stomach, adequately insufflated with air, and upon careful examination, mucosa of the antrum gastritis and biopsies were done from this area. Mucosa of the, body, cardia and the fundus appeared normal. The scope was then withdrawn into the esophagus. The GE junction was located at 39 cm from the incisors. Small hiatal hernia noted. The esophagus appeared normal. No esophageal varices identified. There were no erosions or ulcerations seen and the patient tolerated the procedure well. IMPRESSION: 1. No esophageal or gastric varices. 2. Mild antral gastritis and small hiatal hernia. RECOMMENDATIONS: The findings of this examination were discussed with the patient as well as her family. Follow-up with biopsy results. She was advised to have a repeat upper endoscopy in 2 to 3 years to screen for esophageal varices..
[2024-02-05 11:08] VITALS: BP 123/79; PULSE 63
== END 2024-02-05 11:28 | disposition home or self-care (01) ==
LOC: ORWHC2ENDO 09:29
PROVIDERS: ATTEND Internal Medicine Gastroenterology
DX: K29.50 Unspecified chronic gastritis without bleeding (principal); K74.60 Unspecified cirrhosis of liver; K44.9 Diaphragmatic hernia without obstruction or gangrene; D64.9 Anemia, unspecified; F10.90 Alcohol use, unspecified, uncomplicated; F12.90 Cannabis use, unspecified, uncomplicated; F17.290 Nicotine dependence, other tobacco product, uncomplicated; Z79.899 Other long term (current) drug therapy
CPT/HCPCS: 81025; 43239; J2704; 88305

== ENCOUNTER → 2024-06-23 | Outpatient (CLI) | payer OTHER ==
--- NOTE | 2024-06-23 10:58 | US ---
EXAMINATION TYPE: US liver DATE OF EXAM: 06/23/2024 COMPARISON: US 2023 CLINICAL INDICATION: Female, 34 years old with history of K70.30 Alcoholic cirrhosis of liver without ascites; TECHNIQUE: Grayscale and color Doppler imaging of the right upper quadrant was performed. FINDINGS: EXAM MEASUREMENTS: Liver Length: 15.7 cm Gallbladder Wall: 0.3 cm CBD: 0.5 cm Right Kidney: 11.4 x 5.0 x 5.5 cm Pancreas: visualized portions wnl, limited by overlying midline bowel gas Liver: mildly course echotexture , no masses visualized. Gallbladder: mobile debris seen, wall borderline thickened Evidence for sonographic Carranza's sign: no CBD: visualized portions wnl, limited by overlying bowel gas Right Kidney: wnl IMPRESSION: 1. Coarsened echotexture to liver compatible with hepatocellular disease. No evidence for mass. 2. No acute abdominal process. [facility], , 06/23/2024 10:55 AM
[2024-06-23 14:47] LABS: Basophils # (A) 0.06 X 10*3/uL (0.00-0.10); Basophils % (A) 1.5 %; Eosinophils # (A) 0.15 X 10*3/uL (0.04-0.35); Eosinophils % (A) 3.8 %; HCT 43.3 % (37.2-46.3); HGB 14.6 g/dL (12.0-15.0); Immature Grans, Automated 0 %; Lymphocytes # (A) 1.96 X 10*3/uL (0.90-5.00); MCH 31.9 pg (27.0-32.0); MCHC 33.7 g/dL (32.0-37.0); MCV 94.7 FL (80.0-97.0); Monocytes # (A) 0.36 X 10*3/uL (0.20-1.00); Monocytes % (A) 9.2 %; NRBC Per 100 WBC 0 X 10*3/uL (0.00-0.01); Neutrophils # (A) 1.39 X 10*3/uL (1.80-7.70); Neutrophils % (A) 35.5 %; Platelet Count 119 X 10*3/uL (140-440); RBC 4.57 X 10*6/uL (4.10-5.20); RDW 12.8 % (11.5-14.5); WBC 3.92 X 10*3/uL (4.50-10.00)
[2024-06-23 15:03] LABS: ALT 20 U/L (8-44); AST 36 U/L (13-35); Albumin 4.2 g/dL (3.8-4.9); Albumin/Globulin Ratio 1.83 Ratio (1.60-3.17); Alkaline Phosphatase 52 U/L (41-126); Blood Urea Nitrogen 11.2 mg/dL (9.0-27.0); Calcium 9.6 mg/dL (8.7-10.3); Carbon Dioxide 25.5 mmol/L (21.6-31.8); Chloride 107 mmol/L (96-109); Globulin 2.3 g/dL (1.6-3.3); Glucose 85 mg/dL (70-110); Potassium 4.2 mmol/L (3.5-5.5); Sodium 140 mmol/L (135-145); Total Bilirubin 1.1 mg/dL (0.3-1.2); Total Protein 6.5 g/dL (6.2-8.2)
== END | disposition home or self-care (01) ==
LOC: RADUSWWP 08:59
PROVIDERS: ATTEND Internal Medicine Gastroenterology
DX: K70.30 Alcoholic cirrhosis of liver without ascites (principal)
CPT/HCPCS: 76705; 80053; 81596; 82105; 85025